=== PATIENT | female | born 1940 | race Caucasian/White ===

== ENCOUNTER 2017-10-11 10:00 | Outpatient (RCR) | payer MEDICARE, BC, SELFPAY ==
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
--- NOTE | 2017-10-11 10:00 | DT_ITS ---
This patient was seen during an EMR downtime October 10, 2017 - October 17, 2017. This patient may have a combination of paper and electronic documentation or all paper documentation. All documentation is viewable within the e-chart portion of [employer] for each patient visit.
--- NOTE | 2017-10-18 15:05 | HP.PTDCSUM ---
HP - PT D/C Summary It has been my pleasure to treat XANDER WHALEY under orders from Jorge Pryor, for the diagnosis of R knee pain. for a total of 3 visit(s). Discharge Date: 10/18/17 Please see the following information for a summary of their discharge status. - Subjective Subjective: Not seeing any improvements to R Lower leg numbnesss. R lower leg pain 9/10 most of the time without reason. Keeping her up at night at times. LB and LE strengthening not changing anything. FIS and PT not helping. Symptoms worse in standing. - Pain R lat foot Pain Intensity (Out of 10): 9 - Overall Improvement % Improvement: 0 - Objective Objective/Function: Ext of L/S causing R LE symptoms and tingly and numbness. NE with repeated ext or flexion, ext may make slightly worse overall. R antalgic gait and needs to sit after standing 3 minutes. Not progressing toward goals. - Goals Goal 1:: abolish R lower leg numby achy pain and needles Goal Progress: Not Progressing Goal 2:: I approp ex to minimize future problems with leg and gait. Goal Progress: Not Progressing Goal 3:: patient feel 75% improved in leg pain and mobility and able to stand to do daily chores for 45 minutes. Goal Progress: Not Progressing - Plan Plan: orhtotics? Ensure good tolerance to current ex. Progress to supermans, prone opp UE/LE, clamshells, S/L hip abd, S/L bicycle for HEP. - D/C Information Discharge Comments: Patient not improving and is to call doctor for next step. If there are questions or concerns regarding this patient's physical therapy, please feel free to call me at [phone]. Thank you for the referral of this patient. Sincerely, Rogelio Busch, DPT, OC
== END 2017-10-11 19:00 | disposition home or self-care (01) ==
LOC: PT 10:00
PROVIDERS: Family Provider Student in an Organized Health Care Education/Training Program; PCP Student in an Organized Health Care Education/Training Program; Visit Provider Student in an Organized Health Care Education/Training Program
DX: M25.561 Pain in right knee (principal); G89.29 Other chronic pain; M17.11 Unilateral primary osteoarthritis, right knee
CPT/HCPCS: 97110; 97162; 97530; G8979; G8980

== ENCOUNTER 2020-10-01 15:30 | Outpatient (RCR) | payer MEDICARE, BC, SELFPAY ==
--- NOTE | 2020-09-02 13:46 | HP.PTEVAL_ITS ---
Patient's Visit Information XANDER WHALEY is a 79 year old F referred to Physical Therapy by RUTH BRADSHAW with a diagnosis of POST-TRAUMATIC ANKLE ANKLE SUBTALAR ARTHRITIS,,GAIT INSABLITY. Date of Evaluation: 09/02/20 Physical Therapist: Aki James, PT, Cert MDT, OCS - Visit Plan Frequency: 2x /Week Duration: 4 Weeks Plan: BRACE ON ALL TIMES WITH EX'S,ADVISED PATIENT TO BRING IN SHOE. PT INTERVENTIONS AROM/STRENGTH ANKLE HIP/KNEE,FLEXABILITY,GAIT AND BALANCE TRAINING ,NUSTEP - Subjective This 79 y/o female presents to physical therapy with ankle pain. Patient has had ankle pain for 3 years. Patient ankle pain worse over time . Patient had MRI and DR recommended PT . Patient DR placed patient in ankle brace and wants it own while in PT.Patient pain anterior talojoint . Symptoms worse with walking and standing. Denies parathesia/tingling. Pateint sleeps good. Patient has pain with steps. Symptoms affects housework task and ADLS. MEDS: tramadol. SOCIAL: . VOCATION: retired - Pain Right Ankle Pain Intensity (Out of 10): 6 Pain Intensity Range: 10 - Objective POSTURE: frontal plane mechanics calcaneal valgus. NEURO : intact ,denies parathesia/tingling. GAIT: antalgic gait decrease stance time lateral sway. PRIORIOCEPTION: poor RLE. FLEXABLITY: G-S MILD TIGHT. AROM: dorsiflexion 0 degrees,planterflexion 50 degrees,eversion 5 degres,[id number] degrees. MMT: dorsiflexion 4-/5,posterior tibials,perneous 4-/5 ,G-S 3+/5. quads/hams 4/5,hip flexion 4-/5,hip abd 3+/5. PALAPTION: unremarkable. EDEMA: absent - Balance Scores CATSIB Score (Max score 120 seconds): 80 - Goals Goal 1:: I with HEP Goal Time Frame: 4-6 Weeks Goal 2:: Decrease pain ankle by 50% or > to improve gait. Goal Time Frame: 4-6 Weeks Goal 3:: Patient to improve gait pattern community distance with less antalgic gait Goal Time Frame: 4-6 Weeks Goal 4:: Patient to improve CATSIB by points or> to improve gait/balance Goal Time Frame: 4-6 Weeks Goal 5:: Patient to improve AROM ankle by 5 degrees or> to improve function/gait. Goal Time Frame: 4-6 Weeks Goal 6:: Patient to improve LFES by 5 points or> to improve gait. Goal Time Frame: 4-6 Weeks - Rehabilitation Potential Physical Therapy Diagnosis: This patient has ankle OA subtalar joint with pain ,decrease ROM,strength ankle ,poor proprioception , balance and pain thus benif it from skilled PT Rehabilitation Potential: Good - Anticipated Interventions Patient/Client Instruction: Educate patient on: Condition, Plan of Care For the Purpose of:: To decrease pain, To increase ROM, To improve muscle performance and motor function, To improve ability to perform ADL's, To increase tolerance to activity/condition/position, To improve performance and independence with ADL's, To improve ability of physical actions for home/community/work/leisure, To improve health of tissue, To decrease soft tissue restriction, To increase flexibility/ROM, To improve balance, To improve safety with gait, To improve ability to perform tasks related to life management Therapeutic Exercise to Include: Strength training, Endurance training, Balance training, Postural training, Flexibilty training, Gait and locomotor training, Active ROM For the Purpose of:: To decrease pain, To increase ROM, To improve muscle performance and motor function, To increase tolerance to activity/condition/position, To improve performance and independence with ADL's, To improve ability of physical actions for home/community/work/leisure, To improve health of tissue, To decrease soft tissue restriction, To increase flexibility/ROM, To improve balance, To reduce risk of recurrence Thank you for the opportunity to evaluate your patient. For Medicare and Medicare HMO plans, please review the plan of care and approve it. It will need to be FAXED BACK to us at [phone] for Medicare purposes. For Medicare only, by signing this I certify the plan of care. Please let me know if there are questions or concerns regarding this plan of care. Physician Signature: Date:
--- NOTE | 2020-10-01 16:09 | HP.PTDCSUM ---
It has been my pleasure to treat XANDER WHALEY referred by RUTH BRADSHAW, with the diagnosis of POST-TRAUMATIC ANKLE ANKLE SUBTALAR ARTHRITIS,,GAIT INSABLITY for a total of 9 visit(s). Discharge Date: 10/01/20 Please see the following information for a summary of their discharge status. Subjective: Doing better overall ..stronger Right Ankle Pain Intensity (Out of 10): 6 % Improvement: 60 Objective/Function: GAIT: lateral sway pattern. ANKLE : DORSIFLEXION 4/5,PLANTAR FLEXION 3+/5,PERNEOUS/POSTERIOR TIBILAS 4-/5. AROM: DF 5 degrees, eversion 5 degrees, inversion 30 degrees,planterflexion 50 degrees Goal 1:: I with HEP Goal Progress: Goal Met Goal 2:: Decrease pain ankle by 50% or > to improve gait. Goal Progress: Goal Met Goal 3:: Patient to improve gait pattern community distance with less antalgic gait Goal Progress: Progressing Goal 4:: Patient to improve CATSIB by points or> to improve gait/balance Goal Progress: Progressing Goal 5:: Patient to improve AROM ankle by 5 degrees or> to improve function/gait. Goal 6:: Patient to improve LFES by 5 points or> to improve gait. Goal Progress: Goal Met Plan: D/C TO HEP Discharge Comments: hep If there are questions or concerns regarding this patient's physical therapy, please feel free to call me at [phone]. Thank you for the referral of this patient. Sincerely, Aki James, PT, Cert MDT, OCS
== END 2020-10-01 19:00 | disposition home or self-care (01) ==
LOC: PT 15:30
PROVIDERS: PCP Student in an Organized Health Care Education/Training Program
DX: R26.89 Other abnormalities of gait and mobility (principal); M19.179 Post-traumatic osteoarthritis, unspecified ankle and foot
CPT/HCPCS: 97110; 97162

== ENCOUNTER 2020-11-30 19:13 | Emergency (ER) | payer MEDICARE, BC, SELFPAY ==
[2020-11-30] VITALS (8 sets, daily range): BP systolic 100–159; BP diastolic 53–82; PULSE 60–78; RESP 12–100; TEMP 36.5; O2SAT 97–100; BMI 28.8
--- NOTE | 2020-11-30 19:20 | RAD_ITS ---
STUDY: X-RAY - RIGHT ELBOW REASON FOR EXAM: Female, 79 years old. FALL TECHNIQUE: 3 view(s) of the elbow. COMPARISON: None. FINDINGS: Posterior dislocation of the ulna and radius in relation to the humerus. Small osseous densities are seen adjacent to the coronoid process of the ulna.. Diffuse soft tissue swelling. RAD/Elbow min 3 Views IMPRESSION: Elbow dislocation. Electronically Signed: Elbert Cordova MD ([place]) at 19:36 EDT , Service support ,
--- NOTE | 2020-11-30 20:21 | EX.ED.UPPERE ---
HPI History of Present Illness Chief Complaint: Upper Extremity Injury Informant: patient and family Narrative Narrative: Patient had a mechanical trip on a door stop at about 1145 this morning. She was seen in [facility]. They did x-rays of her right elbow. They found it was dislocated. They evidently tried to reduce it but it would not work. They were going to send her to another facility. She chose to come here. She states there is no other injury than the elbow. She never hit her head. She is not on anticoagulation. Motion hurts more rest makes it better. [facility] Medical History (Updated 11/30/20 @ 23:[address] Brandan Esteban MD) High cholesterol HTN (hypertension) Hypothyroid Home Medications celecoxib [Celebrex] 200 mg PO DAILY 10/03/14 [History Last Taken 10/03/14] fexofenadine-pseudoephedrine [Paloma-D 24 Hour] 1 tab.sr PO DAILY 10/03/14 [History Last Taken 10/03/14 07:00] hydrochlorothiazide 25 mg PO DAILY 10/03/14 [History Last Taken 10/03/14] levothyroxine 100 mcg PO DAILY 10/03/14 [History Last Taken 10/03/14] omega-3 fatty acids-fish oil 1 ea PO BID 10/03/14 [History Last Taken 10/03/14 07:00] pravastatin 40 mg PO DAILY 10/03/14 [History Last Taken 10/02/14 17:00] oxycodone-acetaminophen [Percocet] 1 tab PO Q6H PRN 3 Days #12 tab 11/30/20 [Rx Last Taken Unknown] Allergy/AdvReac Type Severity Reaction Status Date / Time No Known Allergies Allergy Verified 11/30/20 19:17 Social History Smoking Status: Former smoker ROS ROS ED Constitutional Constitutional ED: Denies chills, subjective or sweats Eyes Eyes: Denies change in vision or diplopia ENT ENT ED: Denies rhinorrhea or sore throat Cardiovascular Cardiovascular: Denies chest pain Respiratory/Chest Respiratory/Chest: Denies cough or dyspnea Gastrointestinal Gastrointestinal: Denies abdominal pain, nausea or vomiting Genitourinary Genitourinary ED: Denies hematuria Musculoskeletal Musculoskeletal: Reports other Details: See history of present illness. ; Denies back pain or neck pain Integumentary Denies Abrasions or rash Neurologic Neurologic: Denies headache(s) Hematologic/Lymphatic Hematologic/Lymphatic: Denies easy bleeding or easy bruising EXAM Physical Exam Const Vital Signs: 11/30/20 19:14 Temperature 97.7 F L Temperature Source Temporal Pulse Rate 73 Respiratory Rate 18 Blood Pressure 120/53 L Blood Pressure Mean 75 Pulse Ox 98 Oxygen Delivery Method Room Air Positive well nourished and well developed General Appearance ED: well developed and NAD; Negative for cyanotic or diaphoretic HEENT normocephalic and atraumatic Eyes PERRL Neck full ROM and supple Chest Wall inspection of chest normal Resp normal respiratory effort and clear to auscultation bilaterally Auscultation: Negative for wheezes Cardio regular rate, regular rhythm and no murmurs GI non-tender Palpation: soft Back/Spine no CVA tenderness Thoracic Spine / Upper Back: Negative for thoracic spinal tenderness Lumbar Spine / Lower Back: Negative for lumbar spinal tenderness Extremity Extremity Narrative: There appears to be swelling with some suspected posterior deformity/dislocation. She is neurovascularly intact distally. No tenderness of the shoulder or upper arm forearm wrist or hand. Neuro oriented x3 Sensorium / Orientation: alert Psych mental status grossly normal Skin Rashes: no rashes MDM MDM MDM Narrative Medical decision making narrative: I looked at the patient's prior x-rays and ours today. She has posterior elbow dislocation on the right. She is neurologically intact. We discussed risk benefits and options. We proceeded with procedural sedation. Patient's last meal was about 6-1/2 hours prior. No history of problems with anesthesia. She had a Mallampati of 1?2. Lungs were clear. No chronic high risk disease. Patient was kept on 100% / 15 L nonrebreather oxygen. All questions were answered. She received 40 and then 20 mg of propofol IV with good sedation. I was able to reduce the elbow. It was highly unstable and was very easy to come out. I then got assistance to hold it in place as we splinted it with a posterior long-arm splint. This was difficult because of the need to hold this in place. Postreduction films in splint do show good position. Patient overall tolerated this very well and did not actually recall the event. She woke up and was awake alert and appropriate with no symptoms. She will be referred to orthopedics. I will give her some meds for pain. We discussed that if she gets numbness tingling weakness or tightness of the splint she should return. I did recheck her. She has good motion of the fingers and capillary refill. Radiography Diagnostic Testing: Radiology Impression Elbow X-Ray 11/30/20 19:20 IMPRESSION: Elbow dislocation. Electronically Signed: Elbert Cordova MD ([place]) at 19:36 EDT , Service support , Procedures Other Procedures Procedure(s): See procedure note under medical decision-making. Discharge Plan Triage Chief Complaint: Upper Extremity Injury ED Provider: Brandan Esteban Dx/Rx/DC Orders Clinical Impression: Dislocation of right elbow Prescriptions: New oxycodone-acetaminophen [Percocet] 5-325 mg tablet 1 tab PO Q6H PRN (Reason: pain) 3 Days Qty: 12 RF: 0 No Action celecoxib [Celebrex] 200 MG capsule 200 mg PO DAILY RF: 0 pravastatin 40 MG tablet 40 mg PO DAILY RF: 0 levothyroxine 100 MCG tablet 100 mcg PO DAILY RF: 0 hydrochlorothiazide 25 MG tablet 25 mg PO DAILY RF: 0 fexofenadine-pseudoephedrine [Paloma-D 24 Hour] 1 TAB.SR tablet extended release 24 hr 1 tab.sr PO DAILY RF: 0 omega-3 fatty acids-fish oil 1 EACH capsule 1 ea PO BID RF: 0 Primary Care Provider: Jorge Pryor Referrals: Jorge Pryor DO [Primary Care Provider] - Gurpreet Spence DO [STAFF PHYSICIAN] - As soon as possible Disposition Disposition: Home, Self Care
[2020-11-30] MEDS: fentaNYL 100 MCG/2 ML Ampul 25 MCG IV (21:33)
[2020-11-30] MEDS: Propofol 200 MG/20 ML Vial IV BOLUS (22:42)
--- NOTE | 2020-11-30 23:00 | RAD_ITS ---
EXAM: XR RIGHT ELBOW COMPLETE, 3 OR MORE VIEWS : 1941 CLINICAL INDICATION: post reduction TECHNIQUE: Frontal, lateral and oblique views of the right elbow. This report was created using [employer] report generation technology. COMPARISON: 11/30/2020 at 1931 hrs. FINDINGS: BONES/JOINTS: Fiberglass splint obscures fine bony detail. There has been a closed reduction of the elbow joint. No fractures are identified. There is no displacement of the anterior or posterior fat pads. No destructive or sclerotic lesions. SOFT TISSUES: Unremarkable. No soft tissue swelling or gas. No radiopaque foreign body. OTHER FINDINGS: Alignment is anatomic. RAD/Elbow 2 Views IMPRESSION: Closed reduction of a right elbow dislocation. Alignment is anatomic. at 2353 Reported and signed by: Dylan Nam MD Electronically Signed: Dylan Nam MD at 23:51 EDT Tel , Service support ,
== END 2020-11-30 23:41 | disposition home or self-care (01) ==
PROVIDERS: Emergency Provider Emergency Medicine; PCP Student in an Organized Health Care Education/Training Program
DX: S53.124A Posterior dislocation of right ulnohumeral joint, initial encounter (principal); E78.00 Pure hypercholesterolemia, unspecified; I10 Essential (primary) hypertension; E03.9 Hypothyroidism, unspecified; Z79.899 Other long term (current) drug therapy; Z87.891 Personal history of nicotine dependence; W01.0XXA Fall on same level from slipping, tripping and stumbling without subsequent striking against object, initial encounter; Y93.01 Activity, walking, marching and hiking; Y92.009 Unspecified place in unspecified non-institutional (private) residence as the place of occurrence of the external cause; Y99.8 Other external cause status
CPT/HCPCS: 24600; 73070; 73080; 96374; 96375; 99152; 99283; J7030; A4216

== ENCOUNTER 2021-02-12 14:31 | Inpatient (IN) | payer MEDICARE, BC, SELFPAY ==
[2021-02-12 14:32] VITALS: BP 127/98; PULSE 79; RESP 15; TEMP 36.4; O2SAT 98; BMI 34.7
--- NOTE | 2021-02-12 14:42 | RAD_ITS ---
STUDY: X-RAY - LEFT FEMUR REASON FOR STUDY: Female, 80 years old. pain TECHNIQUE: 4 view(s) of the femur. COMPARISON: None. FINDINGS: Acute oblique fracture through the full width of the shaft and proximal one third aspect of the femurs present with medial and posterior displacement of the distal fracture fragment by 3 cm. The hip joint is unremarkable. There is also mild lateral subluxation of the tibia and fibula in relation to the distal femur likely due to joint space narrowing and ligamentous laxity. RAD/Femur Min 2 Views IMPRESSION: Acute displaced fracture of the proximal one third femoral shaft Electronically Signed: Sebastian Heart MD at 16:25 EDT , Service support ,
--- NOTE | 2021-02-12 14:42 | RAD_ITS ---
STUDY: X-RAY - PELVIS REASON FOR EXAM: Female, 80 years old. pain TECHNIQUE: One view of the pelvis was obtained. COMPARISON: None. FINDINGS: No acute fracture or dislocation. Moderate degenerative changes of the visualized lumbar spine. Joint spaces are well-maintained. Normal alignment. Soft tissues are unremarkable. No radiopaque foreign body or soft tissue gas. RAD/Pelvis 1 or 2 Views IMPRESSION: 1. No acute findings. 2. Degenerative changes of the lumbar spine. Electronically Signed: Desire Lagunas MD at 16:19 EDT Tel , Service support ,
--- NOTE | 2021-02-12 14:44 | EDS_ITS ---
HPI HPI - Fall History of Present Illness Chief Complaint: Fall Narrative Narrative: Patient is a 80-year-old female who states she has balance issues and walks with a cane. She states she was walking into a department store about 30 minutes prior to arrival when her cane hit the security intelligence analyst stand and this caused her to lose her balance and she fell landing on her left side. She denies striking her head or any loss of consciousness or blood thinner use. Her daughter was present and states that she saw the trauma and confirms that there was no LOC. The patient has had severe pain in the left mid leg and states she cannot ambulate secondary to this and therefore EMS was called to bring her in for evaluation [facility] Medical History High cholesterol HTN (hypertension) Hypothyroid Home Medications celecoxib [Celebrex] 200 mg PO DAILY 10/03/14 [History Last Taken 10/03/14] fexofenadine-pseudoephedrine [Paloma-D 24 Hour] 1 tab.sr PO DAILY 10/03/14 [History Last Taken 10/03/14 07:00] hydrochlorothiazide 25 mg PO DAILY 10/03/14 [History Last Taken 10/03/14] levothyroxine 100 mcg PO DAILY 10/03/14 [History Last Taken 10/03/14] omega-3 fatty acids-fish oil 1 ea PO BID 10/03/14 [History Last Taken 10/03/14 07:00] pravastatin 40 mg PO DAILY 10/03/14 [History Last Taken 10/02/14 17:00] oxycodone-acetaminophen [Percocet] 1 tab PO Q6H PRN 3 Days #12 tab 11/30/20 [Rx Last Taken Unknown] Allergy/AdvReac Type Severity Reaction Status Date / Time No Known Allergies Allergy Verified 02/12/21 14:36 Social History Smoking Status: Former smoker ROS ROS ED Constitutional Constitutional ED: Denies chills or fever(s) Eyes Eyes: Denies change in vision ENT ENT ED: Denies sore throat Cardiovascular Cardiovascular: Denies chest pain Respiratory/Chest Respiratory/Chest: Denies cough or dyspnea Gastrointestinal Gastrointestinal: Denies abdominal pain, diarrhea, nausea or vomiting Genitourinary Genitourinary ED: Denies dysuria Musculoskeletal Musculoskeletal: Reports other Details: Positive left hip/leg pain ; Denies myalgias Integumentary Denies Abrasions or rash Neurologic Neurologic: Denies headache(s) or paresthesias Hematologic/Lymphatic Hematologic/Lymphatic: Denies easy bleeding or easy bruising EXAM Physical Exam Const Vital Signs: 02/12/21 14:32 02/12/21 14:36 Temperature 97.6 F L Temperature Source Axillary Pulse Rate 79 Respiratory Rate 15 Respiratory Effort Normal Respiratory Depth Normal Respiratory Pattern Normal Blood Pressure 127/98 H Blood Pressure Mean 107 Pulse Ox 98 Oxygen Delivery Method Room Air Positive well nourished and well developed General Appearance ED: well developed HEENT Reports normocephalic and moist mucous membranes HEENT Narrative: No signs of depressed or basilar skull fracture atraumatic Eyes PERRL and EOMs intact bilaterally Neck supple Chest Wall palpation of chest normal Resp normal respiratory effort and clear to auscultation bilaterally Cardio regular rate and regular rhythm GI non-tender and non-distended Auscultation: normoactive bowel sounds Palpation: soft Back/Spine Back/Spine Narrative: No bony deformity or step-off of the thoracic or lumbar spine no midline pain on palpation Extremity Extremity Narrative: Patient's pelvis is stable but her left leg is externally rotated and shortened compared to the right. There is pain with palpation mainly along the mid aspect of the left femur with soft tissue swelling but no obvious bony deformity palpated. Active and passive range of motion is decreased secondary to pain. Remainder of the exam is normal Neuro oriented x3 and CN's II-XII intact bilaterally Sensorium / Orientation: alert Psych mental status grossly normal Skin no rashes or lesions noted Skin Narrative: Patient has soft tissue swelling to the left femur as documented above without ecchymosis abrasions or laceration Rashes: no rashes MDM MDM MDM Narrative Medical decision making narrative: Patient reported a mechanical fall and therefore there is no need for cardiac or syncope work-up. She had no report or signs of head injury and does not take blood thinner so I felt no need for head CT either. There was concern for a femoral neck versus femur fracture so x-rays were ordered. This confirmed a proximal femur fracture. However the area is closed and she is neurovascularly intact. This type of fracture will require surgical fixation however so basic labs and EKG were added as well as Covid test. Labs revealed no clinically significant findings. I did discuss the case with orthopedics on-call and they plan to take her for surgical fixation tomorrow if she is medically cleared. However based on her advanced age she will be admitted to the medical service Lab Data Labs: Laboratory Results - last 24 hr 02/12/21 02/12/21 16:20 16:20 WBC 7.3 RBC 4.06 L Hgb 12.4 Hct 39.7 MCV 97.8 MCH 30.5 MCHC 31.2 L RDW Std Deviation 47.2 H RDW Coeff of Lexy 13.2 Plt Count 203 MPV 11.4 Immature Gran % (Auto) 0.400 Neut % (Auto) 72.3 H Lymph % (Auto) 17.0 L Emmons % (Auto) 8.0 Eos % (Auto) 1.9 Baso % (Auto) 0.4 Absolute Neuts (auto) 5.3 Absolute Lymphs (auto) 1.25 Nucleated RBC % 0 Sodium 143 Potassium 3.7 Chloride 107 Carbon Dioxide 30.0 Anion Gap 6 BUN 33 H Creatinine 1.63 H Estim Creat Clear Calc 23.15 Est GFR (MDRD) Af Amer 39 L Est GFR (MDRD) Non-Af 32 L BUN/Creatinine Ratio 20.2 H Glucose 145 H Calcium 9.0 Total Bilirubin 0.40 AST 29 ALT 26 Alkaline Phosphatase 32 L Total Protein 6.3 L Albumin 3.3 Globulin 3.0 Albumin/Globulin Ratio 1.1 Radiography Diagnostic Testing: Clinical Impression(s) from Imaging Studies Femur X-Ray 02/12/21 14:42 IMPRESSION: Acute displaced fracture of the proximal one third femoral shaft Electronically Signed: Sebastian Heart MD at 16:25 EDT , Service support , Pelvis X-Ray 02/12/21 14:42 IMPRESSION: 1. No acute findings. 2. Degenerative changes of the lumbar spine. Electronically Signed: Desire Lagunas MD at 16:19 EDT Tel , Service support , Discharge Plan Triage Chief Complaint: Fall ED Provider: Maninder Yepez Dx/Rx/DC Orders Clinical Impression: Closed femur fracture Prescriptions: No Action celecoxib [Celebrex] 200 MG capsule 200 mg PO DAILY RF: 0 pravastatin 40 MG tablet 40 mg PO DAILY RF: 0 levothyroxine 100 MCG tablet 100 mcg PO DAILY RF: 0 hydrochlorothiazide 25 MG tablet 25 mg PO DAILY RF: 0 fexofenadine-pseudoephedrine [Paloma-D 24 Hour] 1 TAB.SR tablet extended release 24 hr 1 tab.sr PO DAILY RF: 0 omega-3 fatty acids-fish oil 1 EACH capsule 1 ea PO BID RF: 0 oxycodone-acetaminophen [Percocet] 5-325 mg tablet 1 tab PO Q6H PRN (Reason: pain) 3 Days Qty: 12 RF: 0 Primary Care Provider: Jorge Pryor Referrals: Jorge Pryor DO [Primary Care Provider] - Disposition Disposition: Acute Care Hospital [facility]
[2021-02-12] MEDS: Morphine 4 MG/ML Syringe IV ×2 (15:09→17:11)
[2021-02-12] MEDS: Ondansetron 4 MG/2 ML Vial IM (15:09)
--- NOTE | 2021-02-12 15:45 | RAD_ITS ---
STUDY: X-RAY CHEST REASON FOR EXAM: Female, 80 years old. pt arrives to ed after falling over her cane. no loc. pain in left leg. FEMUR FX TECHNIQUE: Single AP portable view of the chest. COMPARISON: Left femur x-ray dated February 22, 2021 FINDINGS: The lungs are clear and expanded. There is no demonstrated pleural abnormality. Normal size heart. Normal mediastinum and dylan. A small calcified node is seen in the left hilar region. Normal visualized pulmonary arteries. There is atherosclerotic calcification of the aortic arch with tortuosity. There are diffuse degenerative changes of the visualized thoracic spine. Normal visualized ribs, clavicles, and shoulders. There is no demonstrated abnormality of the visualized soft tissue structures of the upper abdomen. RAD/Chest 1 View IMPRESSION: Degenerative changes, as described above. No demonstrated acute cardiopulmonary process. Electronically Signed: Sebastian Heart MD at 16:58 EDT , Service support ,
--- NOTE | 2021-02-12 15:52 | EKG12_ITS ---
Test Reason : FALL Blood Pressure : / mmHG Vent. Rate : 064 BPM Atrial Rate : 064 BPM P-R Int : 212 ms QRS Dur : 086 ms QT Int : 412 ms P-R-T Axes : 031 004 012 degrees QTc Int : 425 ms Sinus rhythm with 1st degree A-V block Otherwise normal ECG Confirmed by ALEXI OCAMPO, GLADYS ([id number]), supervising editor trailer MUSHTAQ RICE ([id number]) on 02/16/2021 12:17:18 PM Referred By: MAURILIO Confirmed By:VIVI TRUONG MD
[2021-02-12 16:38] LABS: Bacteria 0 SEEN /hpf (None Seen); Mucous, Urine 0 SEEN /hpf (<or=2+); Red Blood Cells-Urine 0 SEEN /hpf (0-5); Squamous Epithelial Cells - UA 0 SEEN /hpf (5-10); White Blood Cells 0 SEEN /hpf (0-5)
[2021-02-12 16:41] LABS: Absolute Lymphocyte Count 1.25 X10^3/uL (0.83-4.51); Absolute Neutrophil Count 5.3 X10^3/uL (2.0-7.7); Basophil# 0.03 X10^3/uL; Basophil% 0.4 % (0-1); Eosinophil# 0.14 X10^3/uL; Eosinophils% 1.9 % (0-5); Hematocrit 39.7 % (37-47); Hemoglobin 12.4 g/dL (12.0-15.0); Lymphocyte # 1.25 X10^3/ul (0.83-4.51); Mean Corp Hgb Conc 31.2 g/dL (32-36); Mean Corpuscular Hgb 30.5 pg (27.0-32.0); Mean Corpuscular Volume 97.8 fL (81-99); Mean Platelet Vol. 11.4 fl (6.2-12.0); Monocyte# 0.59 X10^3/uL; NRBC Flagged by Analyzer 0 % (0-5); Neutrophil % 72.3 % (47-70); Platelet Count 203 K/mm3 (150-450); RBC Distribution Width CV 13.2 % (11.6-14.6); RBC Distribution Width SD 47.2 fl (35.1-43.9); Red Blood Count 4.06 M/mm3 (4.2-5.4); White Blood Count 7.3 K/mm3 (4.4-11.0)
[2021-02-12 16:49] LABS: Color, Urine Yellow (Yellow); Glucose, Dipstick Normal (Normal); Ketone-Dipstick Negative (Negative); Leukocyte Esterase-Dipstick 25 /ul (Negative); Nitrite-Dipstick Negative (Negative); Occult Blood-Urine Negative /ul (Negative); Protein-Dipstick Negative (Negative); Urine Bilirubin Dipstick Negative (Negative); Urine Clarity Clear (Clear); Urine Urobilinogen Normal (Normal)
[2021-02-12 16:50] LABS: ALB/GLOB Ratio 1.1 RATIO (0.9-2.4); AST(SGOT) 29 U/L (15-37); Alanine Aminotransfer ALT/SGPT 26 U/L (13-56); Albumin, Serum 3.3 g/dL (3.2-5.0); Alkaline Phosphatase 32 U/L (45-117); Anion Gap 6 (5-15); BUN 33 mg/dL (7-18); BUN/Creat Ratio 20.2 RATIO (10-20); Chloride 107 mmol/L (98-107); Creatinine, Serum 1.63 mg/dL (0.55-1.02); EST Glomerular Filtration Rate 32 mL/min (>60); Est Glom Filt Rate - Afr Amer 39 mL/min (>60); Estimated Creatinine Clearance 23.15 ml/min; Glucose 145 mg/dL (74-106); Potassium 3.7 mmol/L (3.5-5.1); Protein, Total 6.3 g/dL (6.4-8.2); Sodium Level 143 mmol/L (136-145)
[2021-02-12 17:07] LABS: International Normalized Ratio 1.2; Partial Thromboplast Time 22.2 Seconds (24.1-36.2); Prothrombin Time (Protime)PT. 14.3 SECONDS (11.7-14.9)
[2021-02-12 17:12] VITALS: BP 129/64; PULSE 65; RESP 16; TEMP 36.4; O2SAT 94
--- NOTE | 2021-02-12 17:12 | PCM.HP.STD ---
Documented by User: Syeda Townsend NP, REGIONAL EDUCATION COORDINATOR-C 02/12/21 17:33 HPI - General HPI Narrative XANDER WHALEY, is a 80 F who presents to the emergency room due to fall with left leg pain. She states she was walking to get a cart at a department store when she tripped over her cane and fell onto her left side. She denies hitting her head. Denies loss of consciousness. Reports left lower extremity pain and unable to ambulate. Denies other pain. Denies dizziness, lightheadedness. Denies chest pain, shortness of breath. She states she has fallen in the past, most recently in November. She states it is due to clumsiness. She has a past medical history of hypertension, hyperlipidemia, hypothyroidism, osteoarthritis. [facility] Medical History (Updated 02/12/21 @ 17:19 by Syeda Townsend REGIONAL EDUCATION COORDINATOR, REGIONAL EDUCATION COORDINATOR-C) High cholesterol HTN (hypertension) Hypothyroid Home Medications celecoxib [Celebrex] 200 mg PO DAILY 10/03/14 [History Last Taken 02/12/21] hydrochlorothiazide 25 mg PO DAILY 10/03/14 [History Last Taken 02/12/21] levothyroxine [Synthroid] 100 mcg PO DAILY 10/03/14 [History Last Taken 02/12/21] omega-3 fatty acids-fish oil 1 ea PO QHS 10/03/14 [History Last Taken 02/11/21] pravastatin 40 mg PO QHS 10/03/14 [History Last Taken 02/11/21] cetirizine [Zyrtec] 10 mg PO DAILY 02/12/21 [History Last Taken 02/12/21] escitalopram oxalate 5 mg PO DAILY 02/12/21 [History Last Taken 02/12/21] fenofibrate 160 mg PO DAILY 02/12/21 [History Last Taken 02/12/21] metoprolol tartrate 50 mg PO BID 02/12/21 [History Last Taken 02/12/21] lgsahwdj-nxp-hpeq-FA-lutein [Centrum Silver Women] 1 tab PO DAILY 02/12/21 [History Last Taken 02/12/21] prednisone 5 mg PO DAILY 02/12/21 [History Last Taken 02/12/21] tramadol 50 mg PO Q6H PRN 02/12/21 [History Last Taken 02/12/21] Allergy/AdvReac Type Severity Reaction Status Date / Time No Known Allergies Allergy Verified 02/12/21 14:36 Family History (Updated 02/12/21 @ 17:18 by Syeda Townsend NP, REGIONAL EDUCATION COORDINATOR-C) Father Colon cancer Mother CVA (cerebral vascular accident) CAD (coronary artery disease) Surgical History (Updated 02/12/21 @ 17:19 by Syeda Townsend NP, REGIONAL EDUCATION COORDINATOR-C) History of MRSA infection Social History (Updated 02/12/21 @ 17:19 by Syeda Townsend NP, REGIONAL EDUCATION COORDINATOR-C) household members: none Smoking Status: Former smoker alcohol intake: never substance use type: does not use ROS Constitutional Constitutional: Denies change in weight, chills, fatigue, fever(s) or weakness Cardiovascular Cardiovascular: Denies chest pain, edema, lightheadedness, palpitations or syncope Respiratory/Chest Respiratory/Chest: Denies cough, dyspnea, productive cough, shortness of breath at rest, shortness of breath with exertion or wheezing Gastrointestinal Gastrointestinal: Denies abdominal pain, constipation, diarrhea, nausea or vomiting Genitourinary Genitourinary: Denies burning urination, difficulty urinating, dysuria, hematuria, urinary frequency, urinary incontinence or urinary urgency Musculoskeletal Musculoskeletal: Reports other Details: Left lower extremity pain ; Denies back pain, joint pain or muscle weakness Integumentary Integumentary: Denies erythema, lesions, rash or wounds Neurologic Neurologic: Denies abnormal speech, confusion, dizziness, focal weakness, numbness, paresthesias, seizure-like activity or syncope Psychiatric Psychiatric: Denies anxiety or depression Hematologic/Lymphatic Hematologic/Lymphatic: Denies anemia, easy bleeding or easy bruising Allergic/Immunologic Allergic/Immunologic: Denies hives or asthma Vital Signs Vital Signs Vital Signs: 02/12/21 14:32 02/12/21 14:36 02/12/21 17:12 Temperature 97.6 F L 97.6 F L Temperature Source Axillary Axillary Pulse Rate 79 65 Respiratory Rate 15 16 Respiratory Effort Normal Respiratory Depth Normal Respiratory Pattern Normal Blood Pressure 127/98 H 129/64 H Blood Pressure Mean 107 85 Pulse Ox 98 94 Oxygen Delivery Method Room Air Room Air Weight Weight: 196 lb 3.382 oz Body Mass Index (BMI) 34.7 Physical Exam Const alert, oriented x3 and no apparent distress Orientation / Consciousness: awake, oriented to person, oriented to place and oriented to time HEENT normocephalic and moist oral mucous membranes Eyes PERRL, EOMs intact bilaterally and conjunctivae normal Neck no lymphadenopathy Resp normal respiratory effort and clear to auscultation bilaterally Cardio regular rate, regular rhythm and no murmurs Peripheral Pulses: pulses 2+ throughout GI normal to inspection, nondistended, normoactive bowel sounds, non-tender and non-distended Extremity normal to inspection Extremity Narrative: Left lower extremity pain Skin no rashes or lesions noted Lesions: no lesions Rashes: no rashes Trauma: no lacerations or abrasions Neuro CN's II-XII intact bilaterally, no focal motor deficits, no sensory deficits noted and deep tendon reflexes 2+ bilaterally Psych mental status grossly normal and affect normal Results Lab / Micro Data Result Diagrams: 02/12/21 16:20 02/12/21 16:20 Labs: Laboratory Results - last 24 hr 02/12/21 16:20: WBC 7.3, RBC 4.06 L, Hgb 12.4, Hct 39.7, MCV 97.8, MCH 30.5, MCHC 31.2 L, RDW Std Deviation 47.2 H, RDW Coeff of Lexy 13.2, Plt Count 203, MPV 11.4, Immature Gran % (Auto) 0.400, Neut % (Auto) 72.3 H, Lymph % (Auto) 17.0 L, Woodson % (Auto) 8.0, Eos % (Auto) 1.9, Baso % (Auto) 0.4, Absolute Neuts (auto) 5.3, Absolute Lymphs (auto) 1.25, Nucleated RBC % 0 02/12/21 16:20: PT 14.3, INR 1.2, APTT 22.2 L 02/12/21 16:20: Sodium 143, Potassium 3.7, Chloride 107, Carbon Dioxide 30.0, Anion Gap 6, BUN 33 H, Creatinine 1.63 H, Estim Creat Clear Calc 23.15, Est GFR (MDRD) Af Amer 39 L, Est GFR (MDRD) Non-Af 32 L, BUN/Creatinine Ratio 20.2 H, Glucose 145 H, Calcium 9.0, Total Bilirubin 0.40, AST 29, ALT 26, Alkaline Phosphatase 32 L, Total Protein 6.3 L, Albumin 3.3, Globulin 3.0, Albumin/Globulin Ratio 1.1 10/07/21 16:30: Urine Color Yellow, Urine Clarity Clear, Urine pH 5.0, Ur Specific [place] 1.020, Urine Protein Negative, Urine Glucose (UA) Normal, Urine Ketones Negative, Urine Occult Blood Negative, Urine Nitrite Negative, Urine Bilirubin Negative, Urine Urobilinogen Normal, Ur Leukocyte Esterase 25 H, Urine RBC 0 SEEN, Urine WBC 0 SEEN, Ur Squamous Epith Cells 0 SEEN, Urine Bacteria 0 SEEN, Urine Mucus 0 SEEN Micro: Microbiology 02/12/21 16:30 Nasal Secretion SARS-CoV-2 Antigen (Rapid) - Final Radiology Impression Femur X-Ray 02/12/21 14:42 IMPRESSION: Acute displaced fracture of the proximal one third femoral shaft Electronically Signed: Sebastian Heart MD at 16:25 EDT , Service support , Pelvis X-Ray 02/12/21 14:42 IMPRESSION: 1. No acute findings. 2. Degenerative changes of the lumbar spine. Electronically Signed: Desire Lagunas MD at 16:19 EDT Tel , Service support , Chest X-Ray 02/12/21 15:45 IMPRESSION: Degenerative changes, as described above. No demonstrated acute cardiopulmonary process. Electronically Signed: Sebastian Heart MD at 16:58 EDT , Service support , Assessment & Plan Assessment/Plan (1) History of MRSA infection: (2) Closed femur fracture: PLAN: 1. Acute traumatic displaced proximal femur fracture-plan for surgical intervention 02/13/2021 by orthopedic medicine. PT/OT. As needed pain regimen. Preoperative EKG reviewed, no ST-T changes. NSQIP surgical risk calculator completed and demonstrates a fairly average risk based on age. From a medical standpoint, patient cleared to proceed with orthopedic surgery. Case management consult for discharge planning. 2. Acute kidney injury-IV fluids, trend BMP. Hold HCTZ. 3. Elevated glucose-possibly reactive. Check hemoglobin A1c. 4. Hypertension-stable, hold HCTZ. 5. Hyperlipidemia-continue statin. 6. Hypothyroidism-continue Synthroid regimen. 7. Osteoarthritis-hold Celebrex. As needed Tylenol. 8. History of MRSA infection requiring I&D, behind right ear-patient reports approximately 10 years ago. DVT prophylaxis-Lovenox subcu CODE STATUS: Discussed in length with patient including differences between full code, DNR CCA and DNR CC. Patient elects full CODE STATUS. This patient was seen by MARCUS Dodd under the supervision of Dr. Garcia. Documented by User: Dr. Alisson Garcia MD 02/12/21 18:05 HPI - General General Date of Admission: 02/12/21 [facility] Medical History (Updated 02/12/21 @ 17:19 by Syeda Townsend NP, REGIONAL EDUCATION COORDINATOR-C) High cholesterol HTN (hypertension) Hypothyroid Home Medications celecoxib [Celebrex] 200 mg PO DAILY 10/03/14 [History Last Taken 02/12/21] hydrochlorothiazide 25 mg PO DAILY 10/03/14 [History Last Taken 02/12/21] levothyroxine [Synthroid] 100 mcg PO DAILY 10/03/14 [History Last Taken 02/12/21] omega-3 fatty acids-fish oil 1 ea PO QHS 10/03/14 [History Last Taken 02/11/21] pravastatin 40 mg PO QHS 10/03/14 [History Last Taken 02/11/21] cetirizine [Zyrtec] 10 mg PO DAILY 02/12/21 [History Last Taken 02/12/21] escitalopram oxalate 5 mg PO DAILY 02/12/21 [History Last Taken 02/12/21] fenofibrate 160 mg PO DAILY 02/12/21 [History Last Taken 02/12/21] metoprolol tartrate 50 mg PO BID 02/12/21 [History Last Taken 02/12/21] atuklyiw-tnr-apoy-FA-lutein [Centrum Silver Women] 1 tab PO DAILY 02/12/21 [History Last Taken 02/12/21] prednisone 5 mg PO DAILY 02/12/21 [History Last Taken 02/12/21] tramadol 50 mg PO Q6H PRN 02/12/21 [History Last Taken 02/12/21] Allergy/AdvReac Type Severity Reaction Status Date / Time No Known Allergies Allergy Verified 02/12/21 14:36 Family History (Updated 02/12/21 @ 17:18 by Syeda Townsend REGIONAL EDUCATION COORDINATOR, REGIONAL EDUCATION COORDINATOR-C) Father Colon cancer Mother CVA (cerebral vascular accident) CAD (coronary artery disease) Surgical History (Updated 02/12/21 @ 17:19 by Syeda Townsend NP, REGIONAL EDUCATION COORDINATOR-C) History of MRSA infection Social History (Updated 02/12/21 @ 17:19 by Syeda Townsend NP, REGIONAL EDUCATION COORDINATOR-C) household members: none Smoking Status: Former smoker alcohol intake: never substance use type: does not use Results Lab / Micro Data Result Diagrams: 02/12/21 16:20 02/12/21 16:20
[2021-02-12 18:07] VITALS: BMI 30.4
[2021-02-12 18:38] VITALS: BP 155/83; PULSE 69; RESP 16; TEMP 36.3; O2SAT 95
[2021-02-12 18:50] LABS: Hemoglobin A1c 5.9 % (3.8-5.6)
--- NOTE | 2021-02-12 21:47 | PCS.PANDOC ---
PANDEMIC DOCUMENTATION INITIATED: Date: 12/22/2020 Time: 190
[2021-02-12 21:52] VITALS: BP 133/64; PULSE 74; RESP 16; TEMP 36.8; O2SAT 95
[2021-02-12 22:14] VITALS: PULSE 74
[2021-02-12] MEDS: Metoprolol Tartrate 50 MG Tablet PO (22:14)
[2021-02-12] MEDS: 0.9% Saline Lock 10 ML Syringe IV (22:14)
[2021-02-12] MEDS: 0.9% Normal Saline 1,000 ML 100 ML IV (22:14)
[2021-02-12] MEDS: oxyCODONE 5 MG Tablet 10 MG PO (22:27)
[2021-02-12] MEDS: Acetaminophen 500 MG Tablet 1000 MG PO (22:28)
[2021-02-13] VITALS (12 sets, daily range): BP systolic 115–151; BP diastolic 48–115; PULSE 65–91; RESP 16–18; TEMP 36.2–37.2; O2SAT 90–100; BMI 30.4
--- NOTE | 2021-02-13 04:34 | EKG12_ITS ---
Test Reason : AM EKG Blood Pressure : / mmHG Vent. Rate : 058 BPM Atrial Rate : 058 BPM P-R Int : 256 ms QRS Dur : 080 ms QT Int : 426 ms P-R-T Axes : 029 004 008 degrees QTc Int : 418 ms Sinus bradycardia with 1st degree A-V block Minimal voltage criteria for LVH, may be normal variant Borderline ECG When compared with ECG of 12-FEB-2021 16:02, MANUAL COMPARISON REQUIRED, DATA IS UNCONFIRMED Confirmed by BRYANNA OCAMPO, LUISANA ([id number]), video effects editor MUSHTAQ RICE ([id number]) on 02/17/2021 10:20:47 AM Referred By: JOCELYNE Confirmed By:LUISANA GOULD MD
--- NOTE | 2021-02-13 05:55 | EKG12_ITS ---
Test Reason : AM EKG Blood Pressure : / mmHG Vent. Rate : 059 BPM Atrial Rate : 059 BPM P-R Int : 256 ms QRS Dur : 076 ms QT Int : 416 ms P-R-T Axes : 027 001 004 degrees QTc Int : 411 ms Sinus bradycardia with 1st degree A-V block Minimal voltage criteria for LVH, may be normal variant Borderline ECG When compared with ECG of 13-FEB-2021 04:34, MANUAL COMPARISON REQUIRED, DATA IS UNCONFIRMED Confirmed by BRYANNA OCAMPO, LUISANA ([id number]), editor continuity and script MUSHTAQ RICE ([id number]) on 02/17/2021 10:17:43 AM Referred By: JOCELYNE Confirmed By:LUISANA GOULD MD
[2021-02-13 06:53] LABS: Absolute Lymphocyte Count 1.77 X10^3/uL (0.83-4.51); Absolute Neutrophil Count 3.2 X10^3/uL (2.0-7.7); Basophil# 0.03 X10^3/uL; Basophil% 0.5 % (0-1); Eosinophil# 0.17 X10^3/uL; Eosinophils% 2.9 % (0-5); Hematocrit 34.4 % (37-47); Hemoglobin 11.1 g/dL (12.0-15.0); Lymphocyte # 1.77 X10^3/ul (0.83-4.51); Lymphocyte % 30.4 % (19-41); Mean Corp Hgb Conc 32.3 g/dL (32-36); Mean Corpuscular Hgb 31.4 pg (27.0-32.0); Mean Corpuscular Volume 97.5 fL (81-99); Mean Platelet Vol. 11.6 fl (6.2-12.0); Monocyte# 0.68 X10^3/uL; Monocyte% 11.7 % (0-10); NRBC Flagged by Analyzer 0 % (0-5); Neutrophil # 3.15 X10^3/uL (2.7-7.7); Platelet Count 162 K/mm3 (150-450); RBC Distribution Width CV 13.5 % (11.6-14.6); RBC Distribution Width SD 48.3 fl (35.1-43.9); Red Blood Count 3.53 M/mm3 (4.2-5.4); White Blood Count 5.8 K/mm3 (4.4-11.0)
[2021-02-13] MEDS: 0.9% Normal Saline 1,000 ML 100 ML IV (07:00)
[2021-02-13 07:26] LABS: Anion Gap 6 (5-15); BUN 29 mg/dL (7-18); BUN/Creat Ratio 23.4 RATIO (10-20); Calcium,Total 8.2 mg/dL (8.5-10.1); Chloride 108 mmol/L (98-107); Creatinine, Serum 1.24 mg/dL (0.55-1.02); EST Glomerular Filtration Rate 44 mL/min (>60); Est Glom Filt Rate - Afr Amer 54 mL/min (>60); Estimated Creatinine Clearance 30.43 ml/min; Glucose 94 mg/dL (74-106); Potassium 3.6 mmol/L (3.5-5.1); Sodium Level 144 mmol/L (136-145)
--- NOTE | 2021-02-13 08:45 | RAD_ITS ---
STUDY: X-RAY - PELVIS AND LEFT HIP REASON FOR EXAM: ORIF, gamma nail placement. TECHNIQUE: 7 intraoperative images of the pelvis and hip. COMPARISON: Radiographs 02/12/2021. FINDINGS: There is a gamma nail transfixing the proximal femoral diaphyseal fracture in anatomical alignment and position. 229.3 seconds of fluoroscopy time was used. Electronically Signed: Cruz Kenny MD at 12:10 EDT Tel , Service support , RAD/HIP, UNI W/ Pelvis 2-3 Views
[2021-02-13] MEDS: Cefazolin 2 GM in 0.9% Normal Saline 100 ML IV (08:51)
--- NOTE | 2021-02-13 10:46 | PCM.OP.BLANK ---
Problems Associated Problem List Diagnoses (1) Closed femur fracture: Operative Report Date of Procedure: 02/13/21 Preoperative diagnosis: Left displaced femoral shaft fracture Postoperative diagnosis: Same Title of operation: Left femur reduction , intramedullary nail fixation, locked Surgeon: Dr. Chidi Mccann Cobbler Upper: Chanelle Bronson PA-C Anesthesia: General Medications: Ancef 2gm EBL: 50 Indications for surgery: Patient is an 80-year-old male sustained a left femur fracture yesterday. Patient and their family explained diagnosis and treatment options. Patient evaluated by the medical services. Patient did wish to have surgery. Appropriate informed consent obtained and signed. Findings: Patient had a displaced left femur fracture. They underwent standard reduction, internal fixation using a Evelyn long gamma nail. X-rays taken throughout. public aid eligibility assistant, physician assistant professor of history, was utilized throughout the entire procedure. They were vital to the procedure from beginning to end. They help with patient transfer, patient padding and positioning, fracture reduction, maintenance of fracture reduction, internal fixation of implants, wound closure, bandage application, patient transfer. Without surgical instruments inspector, surgical time would have been significantly increased and surgical outcome could have been less optimal. Procedure: Patient was taken to the operating room. Placed under a general anesthetic and transferred to the operating table with the help of the assistant professor of history. With the help of the assistant professor of history patient was prepped and padded for surgery. Left foot was well-padded and placed in the traction boot. Right lower extremity was abducted and flexed out of harm's way. MARILUZ hose and SCDs utilized. Fluoroscopy was brought in. With the help of the assistant professor of history and manipulation of the limb, reduction was nicely obtained as verified under AP fluoroscopic images. On the lateral view the fracture remained 100% translated. Reduction was improved with anterior to posterior pressure on the fracture site. Left femur was prepped padded draped in usual orthopedic sterile fashion for the procedure. Longitudinal incision was made just proximal to the greater trochanter. Taken through skin and subcutaneous tissue. Sharp awl was placed on the tip of the greater trochanter. Position verified under AP and lateral fluoroscopic images. This was then taken down inside the bone. Slightly bent ball-tipped guide jenn was then placed from the tip of the greater trochanter into the intra-medullary canal of the femur. We triple reamed to the level of the lesser trochanter. We placed a reduction tool. With the help of the assistant professor of history ultimately we are able to get the guide jenn across the fracture site into the distal femur. Its position verified radiographically. Guide jenn was verified to be just above the patella on the AP and lateral x-rays of the knee. We measured the length of the guide jenn within the bone. Measurement was 350. We decided on a 340 nail. Long reaming was done starting with a 9 mm reamer and reaming up to 12.5 mm distally. Was then with the help of the assistant professor of history . once reaming was done we placed the short 125? angle device over the guidepin. This was easily introduced. Guide jenn removed. Outrigger device was utilized to position a guidepin from the lateral cortex of the femur across the fracture site and into the femoral head in a good position centrally, as noted on AP lateral and oblique fluoroscopic images. This was measured. Appropriate reaming done. Appropriate length lag screw was placed from the lateral cortex of the femur into the femoral head. A small amount of the screw was noted to be protruding laterally as planned. No cartilage penetration of the femoral head noted on any x-ray. Screw was placed seated down completely, confirmed. Fluoroscopy was utilized distally to verify the position of the jenn on AP and lateral images as well as confirm fracture reduction. Fracture was impacted, all traction was taken off the distal femur. Lateral image was used to verify the holes within the jenn. We placed a drill bit with the help of fluoroscopy through the slotted hole distally to allow for compression. We then measured and placed the appropriate length to cross locking screw through the slotted hole this was confirmed to be of adequate length in good position on AP and lateral images. Outrigger device removed. Final set of AP and lateral proximal and distal x-rays taken and saved. Fracture site was noted to be well reduced and compressed. Incisions were thoroughly irrigated. Closing by the assistant professor of history with deep 0 Vicryl, mid layer 0 Vicryl, inverted 2-0 Vicryl, skin rey. Puncture wounds closed with inverted 2-0 Vicryl and rey. Xeroform 4 x 4's ABD tape applied. Patient was awoken from their anesthetic, transferred back to their own bed with the help of the assistant professor of history and into recovery room in satisfactory condition. Patient will continue to be admitted to the hospital under the hospitalist service. This note was generated with Stream[employer] dictation software. It may contain incorrect words, spelling, and punctuation that were not noted in checking the note before signing. Ancef 2 g IV was given preoperatively. We will plan to use aspirin 81 mg twice a day for DVT prevention as previously discussed with the hospitalist.
--- NOTE | 2021-02-13 10:54 | CON.PCM_ITS ---
Assessment & Plan Assessment/Plan (1) Closed femur fracture: PLAN: Dr. Chidi Mccann did discuss and review at length with the patient and her family member all treatment options for her femoral shaft fracture including surgical and nonsurgical treatment options. At this time they do wish to proceed with closed reduction intramedullary nailing of femoral shaft fracture with long gamma nail with possible open reduction. Potential risk benefits and complications of the surgical procedure including but not limited to infection nerve and blood vessel damage persistent pain numbness tingling paresthesias blood clot pulmonary [place] and the requirement possible further surgery were discussed and reviewed at length. They voiced understanding. They do agree to proceed with the above-stated procedure and pascual alcala signed the appropriate surgery consent form We discussed and reviewed the current COVID-19 pandemic and vaccination we discussed the risks associated with hospital exposure. We discussed the str ategies to attempt to minimize exposure. They voiced understanding. HPI Consult Data Date of Consult: 02/13/21 HPI Narrative HPI Narrative: XANDER WHALEY, is a 80 F who presented to [facility] yesterday February 12, 2021 after a fall while walking to get a cart at a department store. She tripped over her cane fell on her left side. No head injury or loss of consciousness. The left leg was normal and pain-free prior to the injury. She was taken to [facility] emergency department via squad. She was admitted to the medical surgical unit and orthopedics was consulted. She complains of left thigh pain denies left hip or knee pain. Denies pain into the lower leg or ankle. No numbness or tingling into the feet. No fevers chills or other signs of infection. [facility] Medical History Depression High cholesterol HTN (hypertension) Hypothyroid Rheumatoid arthritis Home Medications celecoxib [Celebrex] 200 mg PO DAILY 10/03/14 [History Last Taken 02/12/21] hydrochlorothiazide 25 mg PO DAILY 10/03/14 [History Last Taken 02/12/21] levothyroxine [Synthroid] 100 mcg PO DAILY 10/03/14 [History Last Taken 02/12/21] omega-3 fatty acids-fish oil 1 ea PO QHS 10/03/14 [History Last Taken 02/11/21] pravastatin 40 mg PO QHS 10/03/14 [History Last Taken 02/11/21] cetirizine [Zyrtec] 10 mg PO DAILY 02/12/21 [History Last Taken 02/12/21] escitalopram oxalate 5 mg PO DAILY 02/12/21 [History Last Taken 02/12/21] fenofibrate 160 mg PO DAILY 02/12/21 [History Last Taken 02/12/21] metoprolol tartrate 50 mg PO BID 02/12/21 [History Last Taken 02/12/21] ezjnxqom-teb-ybcj-FA-lutein [Centrum Silver Women] 1 tab PO DAILY 02/12/21 [History Last Taken 02/12/21] prednisone 5 mg PO DAILY 02/12/21 [History Last Taken 02/12/21] tramadol 50 mg PO Q6H PRN 02/12/21 [History Last Taken 02/12/21] Allergy/AdvReac Type Severity Reaction Status Date / Time No Known Allergies Allergy Verified 02/13/21 07:22 Family History (Updated 02/12/21 @ 17:18 by Syeda Townsend CLASSIFYING MACHINE OPERATOR, CLASSIFYING MACHINE OPERATOR-C) Father Colon cancer Mother CVA (cerebral vascular accident) CAD (coronary artery disease) Surgical History History of MRSA infection Social History (Updated 02/12/21 @ 17:19 by Syeda Townsend CLASSIFYING MACHINE OPERATOR, CLASSIFYING MACHINE OPERATOR-C) household members: none Smoking Status: Never smoker alcohol intake: never substance use type: does not use ROS ROS Narrative Review of systems were discussed and reviewed at length with the patient all pertinent positives and negative are documented in the electronic medical record Physical Exam Narrative Patient was evaluated with her family member sitting bedside. She was resting comfortably in the hospital bed no acute distress at rest breathing easily without respiratory distress. There is deformity at the left thigh from femur fracture hip and knee range of motion were deferred due to femur fracture no calf pain or swelling. Negative Sharad bilaterally without signs of DVT. Sensation intact light touch pedal pulses present equal bilaterally. Neurovascularly intact All below documented laboratory results were reviewed in the electronic medical record X-rays of left femur and pelvis from [facility] February 12, 2021 were reviewed are consistent with degenerative changes of lumbar spine without significant degenerative changes about the hips bilaterally. There are degenerative changes about the left knee with osteophyte formation. There is a displaced angulated proximal third femoral shaft fracture Lab / Micro Data Result Diagrams: 02/13/21 05:45 02/13/21 05:45 Labs: Laboratory Results - last 24 hr 02/12/21 16:20: WBC 7.3, RBC 4.06 L, Hgb 12.4, Hct 39.7, MCV 97.8, MCH 30.5, MCHC 31.2 L, RDW Std Deviation 47.2 H, RDW Coeff of Lexy 13.2, Plt Count 203, MPV 11.4, Immature Gran % (Auto) 0.400, Neut % (Auto) 72.3 H, Lymph % (Auto) 17.0 L, Ross % (Auto) 8.0, Eos % (Auto) 1.9, Baso % (Auto) 0.4, Absolute Neuts (auto) 5 .3, Absolute Lymphs (auto) 1.25, Nucleated RBC % 0 02/12/21 16:20: PT 14.3, INR 1.2, APTT 22.2 L 02/12/21 16:20: Sodium 143, Potassium 3.7, Chloride 107, Carbon Dioxide 30.0, Anion Gap 6, BUN 33 H, Creatinine 1.63 H, Estim Creat Clear Calc 23.15, Est GFR (MDRD) Af Amer 39 L, Est GFR (MDRD) Non-Af 32 L, BUN/Creatinine Ratio 20.2 H, Glucose 145 H, Calcium 9.0, Total Bilirubin 0.40, AST 29, ALT 26, Alkaline Phosphatase 32 L, Total Protein 6.3 L, Albumin 3.3, Globulin 3.0, Albumin/Globulin Ratio 1.1 02/12/21 16:20: Hemoglobin A1c 5.9 H 02/12/21 16:20: Blood Type A NEGATIVE, Antibody Screen NEGATIVE 02/12/21 16:30: Urine Color Yellow, Urine Clarity Clear, Urine pH 5.0, Ur Specific [place] 1.020, Urine Protein Negative, Urine Glucose (UA) Normal, Urine Ketones Negative, Urine Occult Blood Negative, Urine Nitrite Negative, Urine Bilirubin Negative, Urine Urobilinogen Normal, Ur Leukocyte Esterase 25 H, Urine RBC 0 SEEN, Urine WBC 0 SEEN, Ur Squamous Epith Cells 0 SEEN, Urine Bacteria 0 SEEN, Urine Mucus 0 SEEN 02/13/21 05:45: WBC 5.8, RBC 3.53 L, Hgb 11.1 L, Hct 34.4 L, MCV 97.5, MCH 31.4, MCHC 32.3, RDW Std Deviation 48.3 H, RDW Coeff of Lexy 13.5, Plt Count 162, MPV 11.6, Immature Gran % (Auto) 0.500, Neut % (Auto) 54.0, Lymph % (Auto) 30.4, Ross % (Auto) 11.7 H, Eos % (Auto) 2.9, Baso % (Auto) 0.5, Absolute Neuts (auto) 3.2, Absolute Lymphs (auto) 1.77, Nucleated RBC % 0 02/13/21 05:45: Sodium 144, Potassium 3.6, Chloride 108 H, Carbon Dioxide 30.0, Anion Gap 6, BUN 29 H, Creatinine 1.24 H, Estim Creat Clear Calc 30.43, Est GFR (MDRD) Af Amer 54 L, Est GFR (MDRD) Non-Af 44 L, BUN/Creatinine Ratio 23.4 H, Glucose 94, Calcium 8.2 L Micro: Microbiology 02/12/21 16:30 Nasal Secretion SARS-CoV-2 Antigen (Rapid) - Final Radiology Impression Femur X-Ray 02/12/21 14:42 IMPRESSION: Acute displaced fracture of the proximal one third femoral shaft Electronically Signed: Sebastian Heart MD at 16:25 EDT , Service support , Pelvis X-Ray 02/12/21 14:42 IMPRESSION: 1. No acute findings. 2. Degenerative changes of the lumbar spine. Electronically Signed: Desire Lagunas MD at 16:19 EDT Tel , Service support , Chest X-Ray 02/12/21 15:45 IMPRESSION: Degenerative changes, as described above. No demonstrated acute cardiopulmonary process. Electronically Signed: Sebastian Heart MD at 16:58 EDT , Service support ,
[2021-02-13 11:21] LABS: Hematocrit 34.4 % (37-47); Mean Corpuscular Hgb 31.3 pg (27.0-32.0); Mean Platelet Vol. 11.1 fl (6.2-12.0); Platelet Count 157 K/mm3 (150-450); RBC Distribution Width CV 13.3 % (11.6-14.6); RBC Distribution Width SD 47.5 fl (35.1-43.9); Red Blood Count 3.51 M/mm3 (4.2-5.4); White Blood Count 6.1 K/mm3 (4.4-11.0)
[2021-02-13] MEDS: Lactated Ringers 1,000 ML 100 ML IV (11:56)
[2021-02-13] MEDS: oxyCODONE 5 MG Tablet 10 MG PO ×2 (13:10→16:57)
--- NOTE | 2021-02-13 13:13 | CASEMGMT ---
Addendum entered by Rupa Garvin 02/13/21 14:54: Pt's daughter Lexy is here, spoke w/her about options at discharge. She would like a referral made to the rehab unit. SW spoke w/pt and daughter together, explained the difference between rehab and senior care facility level of care. Pt agreeable to rehab, if they would take her. SW made referral, rehab can take pt Tuesday or after. SW let pt and daughter know, they are agreeable to this. SW placed green sheet on chart in anticipation of weekend discharge on Tuesday. SALEEM Ortega Addendum entered by Rupa Garvin 02/13/21 13:24: SW called [facility] to check on bed availability, they temporarily closed the swing bed unit as they are using the beds now for COVID patients. SW let pt know, will continue to follow. SALEEM Ortega Original Note: Expert Medical Writer met w/pt in room, reviewed prior level of function and anticipated discharge plan. PCP: Dr. Pryor Specialists: Dr. Gordon, post anesthesia care unit nurse Pharmacy: [facility] [place] Living arrangements/Prior level of function: Pt lives at [facility], one level with two steps in. Pt lives alone, independent with all ADLs, drives, pays her own bills, organizes her own medication. LNOK: Two daughters, Julia who lives in [facility] and Lexy who is in [facility] from [place] LW/POA: As per pt has LW/POA, not on file, daughter Julia is POA DME/HHC/SNF: Pt has had home health in the past for wound care, has a cane, comfort height commode, pull cords, grab bars, tub transfer bench. Pt would eventually like to get a bedside commode. Pt uses a cane at baseline. Plan: SW spoke w/pt about discharge plan, she is agreeable to go somewhere for rehab. SW provided lists of both inpt rehab and senior care facilities in pt's preferred geographic area, that take pt's insurance, complete with quality and resource use data. Pt may want to go to [facility] Swing Bed Unit, but wants to speak w/her daughters, who will be back this afternoon. SW will follow up w/family and pt, and make referrals accordingly. SALEEM Ortega
[2021-02-13] MEDS: Pravastatin 40 MG Tablet PO (13:16)
[2021-02-13] MEDS: Metoprolol Tartrate 50 MG Tablet PO ×2 (13:16→20:07)
[2021-02-13] MEDS: Fenofibrate 145 MG Tablet PO (13:16)
[2021-02-13] MEDS: Escitalopram Oxalate 10 MG Tablet 5 MG PO (13:17)
--- NOTE | 2021-02-13 13:28 | PCM.PN.HOSP ---
Documented by User: Syeda Townsend NP, BAKERY WORKER CONVEYOR LINE-C 02/13/21 13:39 Subjective Subjective Patient seen and examined. Underwent left femur reduction, intramedullary nail fixation. Reports burning sensation left lower extremity however denies significant pain. Therapy to evaluate this afternoon. Patient denies other symptoms or complaints. Objective Data Objective Data Vital Signs: Vital Signs Temp Pulse Resp BP Pulse Ox 97.5 F L 91 18 128/59 H 91 02/13/21 12:13 02/13/21 13:16 02/13/21 12:13 02/13/21 12:13 02/13/21 12:13 Oxygen Flow Rate (L/min) 3 Oxygen Delivery Method Room Air Weight: 172 lb Body Mass Index (BMI) 30.4 Intake & Output: Intake and Output for Last 24 Hours 02/11/21 02/12/21 02/13/21 23:59 23:59 23:59 Intake Total 2436.67 / 2436.67 Output Total 1025 / 1025 Balance 1411.67 / 1411.67 Lab / Micro Data Result Diagrams: 02/13/21 11:15 02/13/21 05:45 Labs: Laboratory Results - last 24 hr 02/12/21 16:20: WBC 7.3, RBC 4.06 L, Hgb 12.4, Hct 39.7, MCV 97.8, MCH 30.5, MCHC 31.2 L, RDW Std Deviation 47.2 H, RDW Coeff of Lexy 13.2, Plt Count 203, MPV 11.4, Immature Gran % (Auto) 0.400, Neut % (Auto) 72.3 H, Lymph % (Auto) 17.0 L, [place] % (Auto) 8.0, Eos % (Auto) 1.9, Baso % (Auto) 0.4, Absolute Neuts (auto) 5.3, Absolute Lymphs (auto) 1.25, Nucleated RBC % 0 02/12/21 16:20: PT 14.3, INR 1.2, APTT 22.2 L 02/12/21 16:20: Sodium 143, Potassium 3.7, Chloride 107, Carbon Dioxide 30.0, Anion Gap 6, BUN 33 H, Creatinine 1.63 H, Estim Creat Clear Calc 23.15, Est GFR (MDRD) Af Amer 39 L, Est GFR (MDRD) Non-Af 32 L, BUN/Creatinine Ratio 20.2 H, Glucose 145 H, Calcium 9.0, Total Bilirubin 0.40, AST 29, ALT 26, Alkaline Phosphatase 32 L, Total Protein 6.3 L, Albumin 3.3, Globulin 3.0, Albumin/Globulin Ratio 1.1 02/12/21 16:20: Hemoglobin A1c 5.9 H 02/12/21 16:20: Blood Type A NEGATIVE, Antibody Screen NEGATIVE 02/12/21 16:30: Urine Color Yellow, Urine Clarity Clear, Urine pH 5.0, Ur Specific [place] 1.020, Urine Protein Negative, Urine Glucose (UA) Normal, Urine Ketones Negative, Urine Occult Blood Negative, Urine Nitrite Negative, Urine Bilirubin Negative, Urine Urobilinogen Normal, Ur Leukocyte Esterase 25 H, Urine RBC 0 SEEN, Urine WBC 0 SEEN, Ur Squamous Epith Cells 0 SEEN, Urine Bacteria 0 SEEN, Urine Mucus 0 SEEN 02/13/21 05:45: WBC 5.8, RBC 3.53 L, Hgb 11.1 L, Hct 34.4 L, MCV 97.5, MCH 31.4, MCHC 32.3, RDW Std Deviation 48.3 H, RDW Coeff of Lexy 13.5, Plt Count 162, MPV 11.6, Immature Gran % (Auto) 0.500, Neut % (Auto) 54.0, Lymph % (Auto) 30.4, [place] % (Auto) 11.7 H, Eos % (Auto) 2.9, Baso % (Auto) 0.5, Absolute Neuts (auto) 3.2, Absolute Lymphs (auto) 1.77, Nucleated RBC % 0 02/13/21 05:45: Sodium 144, Potassium 3.6, Chloride 108 H, Carbon Dioxide 30.0, Anion Gap 6, BUN 29 H, Creatinine 1.24 H, Estim Creat Clear Calc 30.43, Est GFR (MDRD) Af Amer 54 L, Est GFR (MDRD) Non-Af 44 L, BUN/Creatinine Ratio 23.4 H, Glucose 94, Calcium 8.2 L 02/13/21 11:15: WBC 6.1, RBC 3.51 L, Hgb 11.0 L, Hct 34.4 L, MCV 98.0, MCH 31.3, MCHC 32.0, RDW Std Deviation 47.5 H, RDW Coeff of Lexy 13.3, Plt Count 157, MPV 11.1 Micro: Microbiology 02/12/21 16:30 Nasal Secretion SARS-CoV-2 Antigen (Rapid) - Final Radiography Diagnostic Testing: Radiology Impression Femur X-Ray 02/12/21 14:42 IMPRESSION: Acute displaced fracture of the proximal one third femoral shaft Electronically Signed: Sebastian Heart MD at 16:25 EDT , Service support , Pelvis X-Ray 02/12/21 14:42 IMPRESSION: 1. No acute findings. 2. Degenerative changes of the lumbar spine. Electronically Signed: Desire Lagunas MD at 16:19 EDT Tel , Service support , Chest X-Ray 02/12/21 15:45 IMPRESSION: Degenerative changes, as described above. No demonstrated acute cardiopulmonary process. Electronically Signed: Sebastian Heart MD at 16:58 EDT , Service support , Hip/Pelvis X-Ray 02/13/21 08:45 Physical Exam Const alert, oriented x3 and no apparent distress Orientation / Consciousness: awake, oriented to person, oriented to place and oriented to time HEENT normocephalic and moist oral mucous membranes Eyes PERRL, EOMs intact bilaterally and conjunctivae normal Neck no lymphadenopathy Resp normal respiratory effort and clear to auscultation bilaterally Cardio regular rate, regular rhythm and no murmurs Peripheral Pulses: pulses 2+ throughout GI normal to inspection, nondistended, normoactive bowel sounds, non-tender and non-distended Extremity normal to inspection Skin no rashes or lesions noted Skin Narrative: Left lower extremity postop dressing intact. Lesions: no lesions Rashes: no rashes Trauma: no lacerations or abrasions Neuro CN's II-XII intact bilaterally, no focal motor deficits, no sensory deficits noted and deep tendon reflexes 2+ bilaterally Psych mental status grossly normal and affect normal Assessment & Plan Assessment/Plan (1) Closed femur fracture: PLAN: 1. Acute traumatic displaced proximal femur fracture- PT/OT. As needed pain regimen. Underwent left femur reduction with intramedullary nail fixation 02/13/2021. Management per orthopedic medicine. 2. Acute kidney injury-Hold HCTZ. Improving, trend BMP. 3. Prediabetes-hemoglobin A1c 5.9%. Recommend dietary modifications. 4. Hypertension-stable, hold HCTZ. 5. Hyperlipidemia-continue statin. 6. Hypothyroidism-continue Synthroid regimen. 7. Osteoarthritis-hold Celebrex. As needed Tylenol. 8. History of MRSA infection requiring I&D, behind right ear-patient reports approximately 10 years ago. DVT prophylaxis-Lovenox subcu Discharge plan: SNF for rehab pending repeat orthopedic medicine eval and facility approval. This patient was seen by MARCUS Dodd under the supervision of Dr. Cai. Documented by User: Dr. Rogelio Cai DO 02/13/21 14:02 Subjective Subjective S/P IM nail. Objective Data Lab / Micro Data Result Diagrams: 02/13/21 11:15 02/13/21 05:45 Physical Exam Const alert Exam Limitations: no limitations Resp normal respiratory effort, no retractions, no use of accessory muscles and clear to auscultation bilaterally Cardio regular rate, regular rhythm, S1 normal heart sound and S2 normal heart sound GI normal to inspection, nondistended, normoactive bowel sounds, soft to palpation, non-tender and non-distended Neuro Sensorium / Orientation: awake and alert Assessment & Plan Assessment/Plan (1) Closed femur fracture: PLAN: Patient seen and examined independently. Data and vitals reviewed. I agree with the above note by the nurse practitioner. 1. Left displaced femur fracture 02/13: Patient underwent intramedullary nail. Check 25-hydroxy vitamin D level and replace if less than 50 2. Acute kidney injury Improving HCTZ currently held 3. Debility Patient will require snf facility upon discharge Charges/Coding Visit Charges Inpatient E&M: 21611 Subs Hosp L2
[2021-02-13] MEDS: Cefazolin 1 GM/50 ML BAG IV ×2 (13:53→20:15)
[2021-02-13] MEDS: Aspirin 81 MG TAB.CHEW PO (20:08)
[2021-02-13] MEDS: Docusate Sodium 100 MG Capsule 200 MG PO (20:11)
[2021-02-13] MEDS: Acetaminophen 500 MG Tablet 1000 MG PO (20:11)
[2021-02-14] VITALS (7 sets, daily range): BP systolic 100–120; BP diastolic 46–57; PULSE 72–97; RESP 16–18; TEMP 35.8–37.2; O2SAT 75–95
[2021-02-14] MEDS: oxyCODONE 5 MG Tablet 10 MG PO ×2 (00:24→13:32)
[2021-02-14] MEDS: Levothyroxine 100 MCG Tablet PO (04:47)
[2021-02-14 06:06] LABS: Absolute Lymphocyte Count 1.54 X10^3/uL (0.83-4.51); Absolute Neutrophil Count 4.5 X10^3/uL (2.0-7.7); Basophil# 0.01 X10^3/uL; Basophil% 0.1 % (0-1); Eosinophil# 0.03 X10^3/uL; Eosinophils% 0.4 % (0-5); Hemoglobin 9.3 g/dL (12.0-15.0); Lymphocyte # 1.54 X10^3/ul (0.83-4.51); Lymphocyte % 22.2 % (19-41); Mean Corp Hgb Conc 32.1 g/dL (32-36); Mean Corpuscular Hgb 31.4 pg (27.0-32.0); Mean Platelet Vol. 11.4 fl (6.2-12.0); Monocyte# 0.82 X10^3/uL; Monocyte% 11.8 % (0-10); NRBC Flagged by Analyzer 0 % (0-5); Neutrophil # 4.53 X10^3/uL (2.7-7.7); Neutrophil % 65.2 % (47-70); Platelet Count 151 K/mm3 (150-450); RBC Distribution Width CV 13.5 % (11.6-14.6); RBC Distribution Width SD 48.5 fl (35.1-43.9); Red Blood Count 2.96 M/mm3 (4.2-5.4)
[2021-02-14 06:36] LABS: Anion Gap 2 (5-15); BUN 21 mg/dL (7-18); BUN/Creat Ratio 16.8 RATIO (10-20); Calcium,Total 7.7 mg/dL (8.5-10.1); Chloride 108 mmol/L (98-107); Creatinine, Serum 1.25 mg/dL (0.55-1.02); EST Glomerular Filtration Rate 44 mL/min (>60); Est Glom Filt Rate - Afr Amer 53 mL/min (>60); Estimated Creatinine Clearance 30.19 ml/min; Glucose 118 mg/dL (74-106); Potassium 4.1 mmol/L (3.5-5.1); Sodium Level 143 mmol/L (136-145)
[2021-02-14] MEDS: Fenofibrate 145 MG Tablet PO (08:49)
[2021-02-14] MEDS: Aspirin 81 MG TAB.CHEW PO ×2 (09:10→20:45)
[2021-02-14] MEDS: Metoprolol Tartrate 50 MG Tablet PO (09:10)
[2021-02-14] MEDS: Escitalopram Oxalate 10 MG Tablet 5 MG PO (09:11)
[2021-02-14] MEDS: Docusate Sodium 100 MG Capsule 200 MG PO ×2 (09:12→20:45)
[2021-02-14] MEDS: Pravastatin 40 MG Tablet PO (09:29)
--- NOTE | 2021-02-14 11:00 | PCM.PN.HOSP ---
Documented by User: Syeda Townsend NP, MANAGER BUSINESS INFORMATION-C 02/14/21 11:06 Subjective Subjective Patient seen and examined. Denies significant pain. Tolerating ambulation. Denies other symptoms or complaints. Plan for rehab unit 02/15/2021. Objective Data Objective Data Vital Signs: Vital Signs Temp Pulse Resp BP Pulse Ox 96.5 F L 72 16 110/46 L 94 02/14/21 10:30 02/14/21 10:30 02/14/21 10:30 02/14/21 10:30 02/14/21 10:30 Oxygen Flow Rate (L/min) 3 Oxygen Delivery Method Room Air Weight: 172 lb Body Mass Index (BMI) 30.4 Intake & Output: Intake and Output for Last 24 Hours 02/12/21 02/13/21 02/14/21 23:59 23:59 23:59 Intake Total 3033.34 / 3033.34 1200 / 1200 Output Total 1475 / 1475 1600 / 1600 Balance 1558.34 / 1558.34 -400 / -400 Lab / Micro Data Result Diagrams: 02/14/21 05:30 02/14/21 05:30 Labs: Laboratory Results - last 24 hr 02/13/21 11:15: WBC 6.1, RBC 3.51 L, Hgb 11.0 L, Hct 34.4 L, MCV 98.0, MCH 31.3, MCHC 32.0, RDW Std Deviation 47.5 H, RDW Coeff of Lexy 13.3, Plt Count 157, MPV 11.1 02/14/21 05:30: WBC 7.0, RBC 2.96 L, Hgb 9.3 L, Hct 29.0 L, MCV 98.0, MCH 31.4, MCHC 32.1, RDW Std Deviation 48.5 H, RDW Coeff of Lexy 13.5, Plt Count 151, MPV 11.4, Immature Gran % (Auto) 0.300, Neut % (Auto) 65.2, Lymph % (Auto) 22.2, [place] % (Auto) 11.8 H, Eos % (Auto) 0.4, Baso % (Auto) 0.1, Absolute Neuts (auto) 4.5, Absolute Lymphs (auto) 1.54, Nucleated RBC % 0 02/14/21 05:30: Sodium 143, Potassium 4.1, Chloride 108 H, Carbon Dioxide 33.0 H, Anion Gap 2 L, BUN 21 H, Creatinine 1.25 H, Estim Creat Clear Calc 30.19, Est GFR (MDRD) Af Amer 53 L, Est GFR (MDRD) Non-Af 44 L, BUN/Creatinine Ratio 16.8, Glucose 118 H, Calcium 7.7 L Micro: Microbiology 02/12/21 16:30 Nasal Secretion SARS-CoV-2 Antigen (Rapid) - Final Radiography Diagnostic Testing: Radiology Impression Hip/Pelvis X-Ray 02/13/21 08:45 Physical Exam Const alert, oriented x3 and no apparent distress Orientation / Consciousness: awake, oriented to person, oriented to place and oriented to time HEENT normocephalic and moist oral mucous membranes Eyes PERRL, EOMs intact bilaterally and conjunctivae normal Neck no lymphadenopathy Resp normal respiratory effort and clear to auscultation bilaterally Cardio regular rate, regular rhythm and no murmurs Peripheral Pulses: pulses 2+ throughout GI normal to inspection, nondistended, normoactive bowel sounds, non-tender and non-distended Extremity normal to inspection Skin no rashes or lesions noted Skin Narrative: Postop dressing intact. Lesions: no lesions Rashes: no rashes Trauma: no lacerations or abrasions Neuro CN's II-XII intact bilaterally, no focal motor deficits, no sensory deficits noted and deep tendon reflexes 2+ bilaterally Psych mental status grossly normal and affect normal Assessment & Plan Assessment/Plan (1) Closed femur fracture: PLAN: 1. Acute traumatic displaced proximal femur fracture- PT/OT. As needed pain regimen. Underwent left femur reduction with intramedullary nail fixation 02/13/2021. Management per orthopedic medicine. Rehab unit 02/15/2021. 2. Acute kidney injury on presumed chronic kidney disease stage IIIa-HCTZ on hold. Appears stable, trend BMP. 3. Prediabetes-hemoglobin A1c 5.9%. Recommend dietary modifications. 4. Hypertension-stable, hold HCTZ. 5. Hyperlipidemia-continue statin. 6. Hypothyroidism-continue Synthroid regimen. 7. Osteoarthritis-hold Celebrex. As needed Tylenol. 8. History of MRSA infection requiring I&D, behind right ear-patient reports approximately 10 years ago. 9. Mild acute blood loss anemia, expected outcome related to #1-stable, trend CBC. DVT prophylaxis-SCDs, pharmacologic prophylaxis per surgery recommendations Discharge plan: Discharge to rehab unit 02/15/2021. This patient was seen by MARCUS Dodd under the supervision of Dr. Cai. Documented by User: Dr. Rogelio Cai, 02/14/21 13:08 Subjective Subjective Feeling well. Getting ready to work with therapy. Objective Data Lab / Micro Data Result Diagrams: 02/14/21 05:30 02/14/21 05:30 Physical Exam Const alert Resp normal respiratory effort and no retractions Cardio regular rate, regular rhythm, S1 normal heart sound and S2 normal heart sound GI normal to inspection, nondistended, normoactive bowel sounds, soft to palpation, non-tender and non-distended Neuro Sensorium / Orientation: awake and alert Assessment & Plan Assessment/Plan (1) Closed femur fracture: PLAN: Patient seen and examined independently. Data and vitals reviewed. I agree with the above note by the nurse practitioner. 1. Left displaced femur fracture 02/13: Patient underwent intramedullary nail. Check 25-hydroxy vitamin D level and replace if less than 50 2. Acute kidney injury Improving HCTZ currently held 3. Debility Plan for acute rehab on 02/15 Charges/Coding Visit Charges Inpatient E&M: 49554 Subs Hosp L2
--- NOTE | 2021-02-14 20:14 | PN.ORTHO_ITS ---
Subjective Subjective Patient is postoperative day #1 from left femoral nailing for femoral shaft fracture. She denies chest pain or shortness of breath. She denies productive cough. She feels her pain is much better than before surgery. Currently 2 out of 10. She feels the pain medication is helping. She is planning on discharge to rehab facility. She has been up out of bed with assistance. She now feels like her left leg is actually better and stronger than her right leg. Also complains of some right arm weakness after previous elbow dislocation. She is hoping for further therapy for her arm as well. Objective Data Objective Data Patient's left lower extremity is clinically well aligned without shortening or deformity. Left leg is very stable. No severe pain with hip or knee motion. No calf pain or swelling. Negative Homans' sign. Legs are neurovascular intact. Good active motion toes and ankles. Good distal pulses. No severe swe lling or bruising about the thigh hip or knee. Laboratory work reviewed Vital Signs: Vital Signs Temp Pulse Resp BP Pulse Ox 99.0 F 87 16 105/51 L 92 02/14/21 16:30 02/14/21 16:30 02/14/21 16:30 02/14/21 16:30 02/14/21 16:30 Oxygen Flow Rate (L/min) 3 Oxygen Delivery Method Room Air Weight: 78.018 kg Body Mass Index (BMI) 30.4 Intake & Output: Intake and Output for Last 24 Hours 02/12/21 02/13/21 02/14/21 23:59 23:59 23:59 Intake Total 3033.34 / 3033.34 1200 / 1200 Output Total 1475 / 1475 1999 / 1999 Balance 1558.34 / 1558.34 -800 / -800 Lab / Micro Data Result Diagrams: 02/14/21 05:30 02/14/21 05:30 Labs: Laboratory Results - last 24 hr 02/14/21 05:30: WBC 7.0, RBC 2.96 L, Hgb 9.3 L, Hct 29.0 L, MCV 98.0, MCH 31.4, MCHC 32.1, RDW Std Deviation 48.5 H, RDW Coeff of Lexy 13.5, Plt Count 151, MPV 11.4, Immature Gran % (Auto) 0.300, Neut % (Auto) 65.2, Lymph % (Auto) 22.2, [place] % (Auto) 11.8 H, Eos % (Auto) 0.4, Baso % (Auto) 0.1, Absolute Neuts (auto) 4.5, Absolute Lymphs (auto) 1.54, Nucleated RBC % 0 02/14/21 05:30: Sodium 143, Potassium 4.1, Chloride 108 H, Carbon Dioxide 33.0 H , Anion Gap 2 L, BUN 21 H, Creatinine 1.25 H, Estim Creat Clear Calc 30.19, Est GFR (MDRD) Af Amer 53 L, Est GFR (MDRD) Non-Af 44 L, BUN/Creatinine Ratio 16.8, Glucose 118 H, Calcium 7.7 L Micro: Microbiology 02/12/21 16:30 Nasal Secretion SARS-CoV-2 Antigen (Rapid) - Final Assessment & Plan Assessment/Plan (1) Closed femur fracture: PLAN: Her diagnosis and treatment options regarding her left femoral fracture treated with intramedullary nailing discussed with her at length. She can be weightbearing as tolerated. She can ambulate with assistance. Walker. She will continue on aspirin for DVT prevention. She will continue on the medical service for evaluation of her medical comorbidities with treatment. She can be discharged to [facility] when arrangements are made. She can follow-up in the orthopedic office in 2 weeks for x-rays and evaluation and staple removal. Oral pain medications if needed. Bandage can be removed in 5 to 7 days and replaced with gauze and paper tape if needed. Mild blood loss anemia noted related to surgical procedure, not unexpected. Medicine to follow
[2021-02-15 02:35] VITALS: BP 128/76; PULSE 84; RESP 18; TEMP 37.1; O2SAT 96
[2021-02-15 02:50] VITALS: O2SAT 82
[2021-02-15 03:10] VITALS: O2SAT 93
--- NOTE | 2021-02-15 03:11 | NURSING ---
Pt 02 saturation dropped during beginning of shift, placed on 2 L and satted well, removed by patient and desaturated. Explained to patient that she is now requiring oxygen and pt was not receptive. Placed on bedside pulse ox, pt stated that she did not like the beeping. This nurse explained that the monitor is beeping because her oxygen is dropping without it on. Placed back on 2L 02, satting well at 93-94% on 2L. Dr. Fonseca notified, will monitor and update as needed.
[2021-02-15] MEDS: Levothyroxine 100 MCG Tablet PO (05:13)
[2021-02-15 05:39] LABS: Absolute Lymphocyte Count 1.82 X10^3/uL (0.83-4.51); Absolute Neutrophil Count 4.1 X10^3/uL (2.0-7.7); Basophil# 0.02 X10^3/uL; Basophil% 0.3 % (0-1); Eosinophil# 0.12 X10^3/uL; Eosinophils% 1.8 % (0-5); Hematocrit 31.7 % (37-47); Hemoglobin 10.2 g/dL (12.0-15.0); Lymphocyte # 1.82 X10^3/ul (0.83-4.51); Lymphocyte % 27.1 % (19-41); Mean Corp Hgb Conc 32.2 g/dL (32-36); Mean Corpuscular Hgb 31.2 pg (27.0-32.0); Mean Corpuscular Volume 96.9 fL (81-99); Mean Platelet Vol. 11.1 fl (6.2-12.0); Monocyte# 0.65 X10^3/uL; Monocyte% 9.7 % (0-10); NRBC Flagged by Analyzer 0 % (0-5); Neutrophil # 4.06 X10^3/uL (2.7-7.7); Neutrophil % 60.5 % (47-70); Platelet Count 169 K/mm3 (150-450); RBC Distribution Width CV 13.6 % (11.6-14.6); RBC Distribution Width SD 48.8 fl (35.1-43.9); Red Blood Count 3.27 M/mm3 (4.2-5.4); White Blood Count 6.7 K/mm3 (4.4-11.0)
[2021-02-15 06:11] LABS: Anion Gap 7 (5-15); BUN 19 mg/dL (7-18); BUN/Creat Ratio 17.1 RATIO (10-20); Calcium,Total 8.3 mg/dL (8.5-10.1); Chloride 106 mmol/L (98-107); Creatinine, Serum 1.11 mg/dL (0.55-1.02); EST Glomerular Filtration Rate 50 mL/min (>60); Est Glom Filt Rate - Afr Amer 61 mL/min (>60); Glucose 132 mg/dL (74-106); Potassium 3.7 mmol/L (3.5-5.1); Sodium Level 143 mmol/L (136-145)
[2021-02-15 08:35] VITALS: BP 133/73; PULSE 90; RESP 18; TEMP 36.8; O2SAT 94
[2021-02-15] MEDS: Fenofibrate 145 MG Tablet PO (09:21)
[2021-02-15] MEDS: Aspirin 81 MG TAB.CHEW PO (09:21)
[2021-02-15] MEDS: Pravastatin 40 MG Tablet PO (09:22)
[2021-02-15] MEDS: Docusate Sodium 100 MG Capsule 200 MG PO (09:22)
[2021-02-15] MEDS: Escitalopram Oxalate 10 MG Tablet 5 MG PO (09:23)
[2021-02-15 09:24] VITALS: PULSE 90
[2021-02-15] MEDS: Metoprolol Tartrate 50 MG Tablet PO (09:24)
[2021-02-15] MEDS: oxyCODONE 5 MG Tablet 10 MG PO (09:33)
--- NOTE | 2021-02-15 11:28 | PCM.DC ---
Discharge Instructions Diet Discharge Diet: Carb Control Diet Activity Discharge Activity: Return to Normal Activity Weight Bearing Status: Weight bearing as tolerated (left lower extremity) Dressing / Incision Call your doctor if you observe: Fever of 101 or Higher, Shortness of breath, Dizziness and Chest pain Follow Up Care Test Results: Test results from this visit will be discussed in further detail at your follow-up appointment, if applicable. Discharge Plan Admission Admit Date/Time: 02/12/21 17:36 Primary Reason for Your Visit: Closed femur fracture Attending Provider: Fili Neumann Primary Care Provider: Jorge Pryor Consulting Providers: Chidi Mccann Instructions Additional Instructions / Restrictions: Weightbearing left lower extremity as tolerated. Use walker. Remove postop dressing in 5 to 7 days and replace with gauze and paper tape if needed. Discharge Orders/Prescriptions Prescriptions: New acetaminophen 500 mg Tablet 1,000 mg PO Q8H PRN (Reason: Pain Score 1-10/Temp > 100.7 F) Qty: 0 RF: 0 aspirin 81 mg Tablet,Chewable 81 mg PO BID Qty: 0 RF: 0 docusate sodium [DOK] 100 mg Capsule 200 mg PO BID Qty: 0 RF: 0 oxycodone 5 mg Tablet 10 mg PO Q4H PRN PRN (Reason: Pain Score 4-5) Qty: 0 RF: 0 Continued pravastatin 40 MG tablet 40 mg PO QHS RF: 0 levothyroxine [Synthroid] 100 MCG tablet 100 mcg PO DAILY RF: 0 omega-3 fatty acids-fish oil 1 EACH capsule 1 ea PO QHS RF: 0 cetirizine [Zyrtec] 10 mg Tablet 10 mg PO DAILY RF: 0 prednisone 5 mg tablet 5 mg PO DAILY RF: 0 tramadol 50 mg tablet 50 mg PO Q6H PRN (Reason: Pain) RF: 0 metoprolol tartrate 50 mg tablet 50 mg PO BID RF: 0 escitalopram oxalate 5 mg tablet 5 mg PO DAILY RF: 0 fenofibrate 160 mg tablet 160 mg PO DAILY RF: 0 Centrum Silver Women 8 mg iron-400 mcg-300 mcg Tablet 1 tab PO DAILY RF: 0 Discontinued celecoxib [Celebrex] 200 MG capsule 200 mg PO DAILY RF: 0 hydrochlorothiazide 25 MG tablet 25 mg PO DAILY RF: 0 Referrals / Follow Up: Jorge Pryor DO [Primary Care Provider] - Within 2 Weeks Chidi Mccann MD [STAFF PHYSICIAN] - Within 2 Weeks Disposition Disposition (needs filled in before D/C Order can be placed): Inpatient Rehab Unit/Facility
--- NOTE | 2021-02-15 11:46 | DS.PCM_ITS ---
Documented by User: Syeda Townsend NP, SQL SERVER ARCHITECT-C 02/15/21 11:51 Providers Date of Admission: 02/12/21 Date of Discharge: 02/15/21 Primary Care Physician: Dr. Jorge Pryor DO Consultations 02/12/21 18:56 Consult: Orthopedics Routine Consulting Provider: Chidi Mccann Reason for Consult: femure fx EMERGENT Consult: No MD Notified: Yes Date Notified: 02/12/21 Time Notified: 17:35 Method of Notification: Verbal Comments:: consulted/notified by ER Reason For Visit: DISPLACED PROXIMAL FEMUR FRACTURE Diagnosis Discharge Diagnosis (1) Closed femur fracture: Status: Acute Code(s): S72.90XA - Unspecified fracture of unspecified femur, initial encounter for closed fracture Medications at Discharge Home Medications levothyroxine [Synthroid] 100 mcg PO DAILY 10/03/14 omega-3 fatty acids-fish oil 1 ea PO QHS 10/03/14 pravastatin 40 mg PO QHS 10/03/14 Centrum Silver Women 1 tab PO DAILY 02/12/21 cetirizine [Zyrtec] 10 mg PO DAILY 02/12/21 escitalopram oxalate 5 mg PO DAILY 02/12/21 fenofibrate 160 mg PO DAILY 02/12/21 metoprolol tartrate 50 mg PO BID 02/12/21 prednisone 5 mg PO DAILY 02/12/21 tramadol 50 mg PO Q6H PRN 02/12/21 acetaminophen 1,000 mg PO Q8H PRN #0 tab 02/15/21 aspirin 81 mg PO BID #0 tab 02/15/21 docusate sodium [DOK] 200 mg PO BID #0 cap 02/15/21 oxycodone 10 mg PO Q4H PRN PRN #0 tab 02/15/21 Hospital Course Operations - (left femur reduction with intramedullary nail fixation 02/13/2021) Procedures None Summary of Care Provided Minutes Spent on Discharge: 35 Hospital Course: Patient is a 80-year-old female admitted 02/12/2021 due to mechanical fall with left leg pain. 1. Acute traumatic displaced proximal femur fracture- PT/OT. As needed pain regimen. Underwent left femur reduction with intramedullary nail fixation 02/13/2021. Aspirin 81 mg twice daily for DVT prophylaxis per Ortho recommendations. Remove dressing in 5 to 7 days. Weightbearing as tolerated left lower extremity. Scheduled Colace per patient request. Follow-up with orthopedic medicine in 2 weeks. 2. Acute kidney injury on presumed chronic kidney disease stage IIIa-HCTZ discontinued, KATHERINE resolved. Appears stable, trend BMP. 3. Prediabetes-hemoglobin A1c 5.9%. Recommend dietary modifications. 4. Hypertension-stable, continue metoprolol, HCTZ discontinued. 5. Hyperlipidemia-continue statin. 6. Hypothyroidism-continue Synthroid regimen. 7. Osteoarthritis-hold Celebrex. As needed Tylenol. On chronic low dose pre dnisone as well. 8. History of MRSA infection requiring I&D, behind right ear-patient reports approximately 10 years ago. 9. Mild acute blood loss anemia, expected outcome related to #1-stable, follow CBC. 10. Depression-on escitalopram. Physical Exam Const alert, oriented x3 and no apparent distress Orientation / Consciousness: awake, oriented to person, oriented to place and oriented to time HEENT normocephalic and moist oral mucous membranes Eyes PERRL, EOMs intact bilaterally and conjunctivae normal Neck no lymphadenopathy Resp normal respiratory effort and clear to auscultation bilaterally Cardio regular rate, regular rhythm and no murmurs Peripheral Pulses: pulses 2+ throughout GI normal to inspection, nondistended, normoactive bowel sounds, non-tender and non-distended Extremity normal to inspection Skin no rashes or lesions noted Skin Narrative: Postop dressing intact. Lesions: no lesions Rashes: no rashes Trauma: no lacerations or abrasions Neuro CN's II-XII intact bilaterally, no focal motor deficits, no sensory deficits noted and deep tendon reflexes 2+ bilaterally Psych mental status grossly normal and affect normal Patient seen and examined prior to discharge. Physical assessment as noted above. Patient is stable for discharge with follow up recommendations as noted above. This patient was seen by MARCUS Dodd under the supervision of Dr. Neumann. Weight / BMI Weight Weight: 172 lb Body Mass Index (BMI) 30.4 ABG / Lab / Microbiology Data Result Diagrams: 02/15/21 05:18 02/15/21 05:18 Laboratory: Laboratory Results - last 24 hr 02/15/21 05:18: WBC 6.7, RBC 3.27 L, Hgb 10.2 L, Hct 31.7 L, MCV 96.9, MCH 31.2, MCHC 32.2, RDW Std Deviation 48.8 H, RDW Coeff of Lexy 13.6, Plt Count 169, MPV 11.1, Immature Gran % (Auto) 0.600, Neut % (Auto) 60.5, Lymph % (Auto) 27.1, [place] % (Auto) 9.7, Eos % (Auto) 1.8, Baso % (Auto) 0.3, Absolute Neuts (auto) 4.1, Absolute Lymphs (auto) 1.82, Nucleated RBC % 0 02/15/21 05:18: Sodium 143, Potassium 3.7, Chloride 106, Carbon Dioxide 30.0, Anion Gap 7, BUN 19 H, Creatinine 1.11 H, Estim Creat Clear Calc 34.00, Est GFR (MDRD) Af Amer 61, Est GFR (MDRD) Non-Af 50 L, BUN/Creatinine Ratio 17.1, Glucose 132 H, Calcium 8.3 L Microbiology: Microbiology 02/12/21 16:30 Nasal Secretion SARS-CoV-2 Antigen (Rapid) - Final D/C Instructions Discharge Diet: Carb Control Diet Weight Bearing Status: Weight bearing as tolerated (left lower extremity) Call your doctor if you observe: Fever of 101 or Higher, Shortness of breath, Dizziness and Chest pain Meaningful Use Info Meaningful Use Diagnoses (Choose all that apply): None applicable Discharge Plan Admission Admit Date/Time: 02/12/21 17:36 Primary Reason for Your Visit: Closed femur fracture Attending Provider: Fili Neumann Primary Care Provider: Jorge Pryor Consulting Providers: Chidi Mccann Instructions Additional Instructions / Restrictions: Weightbearing left lower extremity as tolerated. Use walker. Remove postop dressing in 5 to 7 days and replace with gauze and paper tape if needed. Discharge Orders/Prescriptions Prescriptions: New acetaminophen 500 mg Tablet 1,000 mg PO Q8H PRN (Reason: Pain Score 1-10/Temp > 100.7 F) Qty: 0 RF: 0 aspirin 81 mg Tablet,Chewable 81 mg PO BID Qty: 0 RF: 0 docusate sodium [DOK] 100 mg Capsule 200 mg PO BID Qty: 0 RF: 0 oxycodone 5 mg Tablet 10 mg PO Q4H PRN PRN (Reason: Pain Score 4-5) Qty: 0 RF: 0 Continued pravastatin 40 MG tablet 40 mg PO QHS RF: 0 levothyroxine [Synthroid] 100 MCG tablet 100 mcg PO DAILY RF: 0 omega-3 fatty acids-fish oil 1 EACH capsule 1 ea PO QHS RF: 0 cetirizine [Zyrtec] 10 mg Tablet 10 mg PO DAILY RF: 0 prednisone 5 mg tablet 5 mg PO DAILY RF: 0 tramadol 50 mg tablet 50 mg PO Q6H PRN (Reason: Pain) RF: 0 metoprolol tartrate 50 mg tablet 50 mg PO BID RF: 0 escitalopram oxalate 5 mg tablet 5 mg PO DAILY RF: 0 fenofibrate 160 mg tablet 160 mg PO DAILY RF: 0 Centrum Silver Women 8 mg iron-400 mcg-300 mcg Tablet 1 tab PO DAILY RF: 0 Discontinued celecoxib [Celebrex] 200 MG capsule 200 mg PO DAILY RF: 0 hydrochlorothiazide 25 MG tablet 25 mg PO DAILY RF: 0 Referrals / Follow Up: Jorge Pryor DO [Primary Care Provider] - Within 2 Weeks Chidi Mccann MD [STAFF PHYSICIAN] - Within 2 Weeks Disposition Disposition (needs filled in before D/C Order can be placed): Inpatient Rehab Unit/Facility Documented by User: Dr. Fili Neumann MD 02/15/21 13:25 Providers Date of Admission: 02/12/21 Reason For Visit: DISPLACED PROXIMAL FEMUR FRACTURE Medications at Discharge Home Medications levothyroxine [Synthroid] 100 mcg PO DAILY 10/03/14 omega-3 fatty acids-fish oil 1 ea PO QHS 10/03/14 pravastatin 40 mg PO QHS 10/03/14 Centrum Silver Women 1 tab PO DAILY 02/12/21 cetirizine [Zyrtec] 10 mg PO DAILY 02/12/21 escitalopram oxalate 5 mg PO DAILY 02/12/21 fenofibrate 160 mg PO DAILY 02/12/21 metoprolol tartrate 50 mg PO BID 02/12/21 prednisone 5 mg PO DAILY 02/12/21 tramadol 50 mg PO Q6H PRN 02/12/21 acetaminophen 1,000 mg PO Q8H PRN #0 tab 02/15/21 aspirin 81 mg PO BID #0 tab 02/15/21 docusate sodium [DOK] 200 mg PO BID #0 cap 02/15/21 oxycodone 10 mg PO Q4H PRN PRN #0 tab 02/15/21 Hospital Course Summary of Care Provided Hospital Course: This patient was seen in conjunction with Syeda MONK. I have independently interviewed and examined the patient and reviewed pertinent history, examination findings, laboratory and plan of management. I have reviewed the note and agree with the documented findings with the few additional points. In brief, patient is admitted for mechanical fall with left leg pain and found to have left proximal fracture. Patient was admitted with a diagnosis of acute displaced proximal femur fracture, pathological from osteoporosis. Patient underwent left femur reduction with intramedullary nail fixation on 02/13. KATHERINE resolved. Patient has chronic kidney disease stage III. Other comorbidities as mentioned above. Discharged to acute rehab. Discharge medication reconciliation done. Discharge follow-up instructions completed. Discharge process discussed with the patient and all questions were answered to patient's satisfaction. Total time spent, exact 35 minutes on discharge meds reconciliation, examination, coordination of care with nurses and ancillary staff, review of imaging and blood test and discussion with the patient on follow-up instructions I have discussed my assessment with Syeda MONK and orders have been reviewed. Physical Exam Narrative General: Alert, Oriented x3, Cooperative HEENT: Atraumatic, PERRLA, EOMI, Normocephalic Oral: No Gingival or Mucosal Lesions/ Ulcerations Neck: Supple, No JVD, Negative Carotid Bruits Lungs: Air entry diminished in bilateral lung bases. No crepitation/rhonchi Cardiovascular: Regular rate, Regular Rhythm, Normal S1, Normal S2, No murmurs Abdomen: Bowel Sounds Present, Soft, Non Tender, Non-Distended : No renal angle tenderness. No suprapubic tenderness. Extremities: No edema, Capillary Refill Less than 3 Seconds Skin: No rashes, No breakdown Musculoskeletal: Left hip surgical dressing is dry. No hematoma or bleeding staining on the dressing. Neurological: Cranial nerves II-XII grossly intact, DTR 2+/4 and Symmetrical, Neuro grossly intact Psych/Mental Status: Normal Affect, Appropriate. ABG / Lab / Microbiology Data Result Diagrams: 02/15/21 05:18 02/15/21 05:18 Discharge Plan Admission Admit Date/Time: 02/12/21 17:36 Primary Reason for Your Visit: Closed femur fracture Attending Provider: Fili Neumann Primary Care Provider: Jorge Pryor Consulting Providers: Chidi Mccann Instructions Additional Instructions / Restrictions: Weightbearing left lower extremity as tolerated. Use walker. Remove postop dressing in 5 to 7 days and replace with gauze and paper tape if needed. Discharge Orders/Prescriptions Prescriptions: New acetaminophen 500 mg Tablet 1,000 mg PO Q8H PRN (Reason: Pain Score 1-10/Temp > 100.7 F) Qty: 0 RF: 0 aspirin 81 mg Tablet,Chewable 81 mg PO BID Qty: 0 RF: 0 docusate sodium [DOK] 100 mg Capsule 200 mg PO BID Qty: 0 RF: 0 oxycodone 5 mg Tablet 10 mg PO Q4H PRN PRN (Reason: Pain Score 4-5) Qty: 0 RF: 0 Continued pravastatin 40 MG tablet 40 mg PO QHS RF: 0 levothyroxine [Synthroid] 100 MCG tablet 100 mcg PO DAILY RF: 0 omega-3 fatty acids-fish oil 1 EACH capsule 1 ea PO QHS RF: 0 cetirizine [Zyrtec] 10 mg Tablet 10 mg PO DAILY RF: 0 prednisone 5 mg tablet 5 mg PO DAILY RF: 0 tramadol 50 mg tablet 50 mg PO Q6H PRN (Reason: Pain) RF: 0 metoprolol tartrate 50 mg tablet 50 mg PO BID RF: 0 escitalopram oxalate 5 mg tablet 5 mg PO DAILY RF: 0 fenofibrate 160 mg tablet 160 mg PO DAILY RF: 0 Centrum Silver Women 8 mg iron-400 mcg-300 mcg Tablet 1 tab PO DAILY RF: 0 Discontinued celecoxib [Celebrex] 200 MG capsule 200 mg PO DAILY RF: 0 hydrochlorothiazide 25 MG tablet 25 mg PO DAILY RF: 0 Referrals / Follow Up: Jorge Pryor DO [Primary Care Provider] - Within 2 Weeks Chidi Mccann MD [STAFF PHYSICIAN] - Within 2 Weeks Disposition Disposition (needs filled in before D/C Order can be placed): Inpatient Rehab Unit/Facility Charges/Coding Visit Charges Inpatient E&M: [id number] [place] [id number]
[2021-02-16 08:08] LABS: Vitamin D,25 Hydroxy 45.3 ng/mL
== END 2021-02-15 14:08 | DRG 481 ==
LOC: ED 17:43 → MS2 17:56
PROVIDERS: Orthopaedic Surgery; Admitting Provider Nurse Practitioner Family; Emergency Provider Emergency Medicine; PCP Student in an Organized Health Care Education/Training Program; Visit Provider Internal Medicine
PROC: 0QS936Z Reposition Left Femoral Shaft with Intramedullary Internal Fixation Device, Percutaneous Approach (ICD-10-PCS; CPT 27245; principal; 2021-02-13 08:15)
DX: M80.052A Age-related osteoporosis with current pathological fracture, left femur, initial encounter for fracture (principal); N17.9 Acute kidney failure, unspecified; E03.9 Hypothyroidism, unspecified; M47.816 Spondylosis without myelopathy or radiculopathy, lumbar region; I12.9 Hypertensive chronic kidney disease with stage 1 through stage 4 chronic kidney disease, or unspecified chronic kidney disease; N18.31 Chronic kidney disease, stage 3a; E78.5 Hyperlipidemia, unspecified; R73.03 Prediabetes; R53.81 Other malaise; F32.A Depression, unspecified; Z86.14 Personal history of Methicillin resistant Staphylococcus aureus infection; Z79.52 Long term (current) use of systemic steroids; Z79.899 Other long term (current) drug therapy; Z87.891 Personal history of nicotine dependence; W18.30XA Fall on same level, unspecified, initial encounter; Y93.01 Activity, walking, marching and hiking; Y92.512 Supermarket, store or market as the place of occurrence of the external cause; Y99.8 Other external cause status; Z23 Encounter for immunization
CPT/HCPCS: 36415; 51702; 71045; 72170; 73502; 73552; 76000; 80048; 80053; 81001; 82306; 83036; 85025; 85027; 85610; 85730; 86850; 86900; 86901; 87426; 93005; 97110; 97162; 97166; 97530; 97535; 99251; 99285; C1776; G0008; J7030; J7120; 90686; A4216; G0463; J2405

== ENCOUNTER 2021-02-15 14:25 | Inpatient (IN) | payer MEDICARE, BC, SELFPAY ==
[2021-02-15 15:03] VITALS: BP 140/56; PULSE 75; RESP 18; TEMP 36.9; O2SAT 100; BMI 30.4
[2021-02-15] MEDS: Acetaminophen 500 MG Tablet 1000 MG PO (18:36)
[2021-02-15 19:39] VITALS: O2SAT 93
[2021-02-15 21:33] VITALS: PULSE 70; O2SAT 99
[2021-02-15 21:59] VITALS: BP 130/57; PULSE 70
[2021-02-15] MEDS: Pravastatin 40 MG Tablet PO (21:59)
[2021-02-15] MEDS: Aspirin 81 MG TAB.CHEW PO (21:59)
[2021-02-15] MEDS: Omega-3 Acid Ethyl Esters 1 GM Capsule PO (21:59)
[2021-02-15] MEDS: Metoprolol Tartrate 50 MG Tablet PO (21:59)
[2021-02-15 22:00] VITALS: BP 130/57; PULSE 70; RESP 16; TEMP 36.6; O2SAT 99
[2021-02-15] MEDS: traMADol 50 MG Tablet PO (22:00)
[2021-02-16] VITALS (7 sets, daily range): BP systolic 141–144; BP diastolic 60–76; PULSE 74–78; RESP 16; TEMP 36.7–37.1; O2SAT 91–99
--- NOTE | 2021-02-16 01:23 | NURSING ---
02/15 @ 2225. PVR #1. 300 ml urine output and BS for 12 ml remaining.
--- NOTE | 2021-02-16 01:25 | NURSING ---
Reviewed and agree with WEB PRESS OPERATOR documentation and assessment charting.
[2021-02-16] MEDS: Levothyroxine 100 MCG Tablet PO (06:28)
[2021-02-16] MEDS: predniSONE 5 MG Tablet PO (08:10)
[2021-02-16] MEDS: Aspirin 81 MG TAB.CHEW PO ×2 (08:10→20:37)
[2021-02-16] MEDS: Escitalopram Oxalate 10 MG Tablet 5 MG PO (08:10)
[2021-02-16] MEDS: Fenofibrate 145 MG Tablet PO (08:11)
[2021-02-16] MEDS: Metoprolol Tartrate 50 MG Tablet PO ×2 (08:11→20:38)
[2021-02-16] MEDS: Loratadine 10 MG Tablet PO (08:11)
[2021-02-16] MEDS: traMADol 50 MG Tablet PO ×3 (08:14→20:54)
[2021-02-16] MEDS: Multivitamins,Ther W-Minerals Tablet 1 TABLET PO (12:06)
--- NOTE | 2021-02-16 15:32 | PCM.HP.STD ---
HPI - General General Date of Admission: 02/15/21 Chief Complaint: Flu-like symptoms, r/o COVID-19 HPI Narrative XANDER WHALEY, is a 80 YO F with a PMH of hypertension, depression, allergic rhinitis, hyperlipidemia, hypothyroidism, osteoarthritis, RA, who presents [facility] Medical History (Updated 02/17/21 @ 15:[address] Stacy Frank DO) Depression High cholesterol HTN (hypertension) Hypothyroid Rheumatoid arthritis Home Medications levothyroxine [Synthroid] 100 mcg PO DAILY 10/03/14 [History Last Taken 02/12/21] omega-3 fatty acids-fish oil 1 ea PO QHS 10/03/14 [History Last Taken 02/11/21] pravastatin 40 mg PO QHS 10/03/14 [History Last Taken 02/11/21] Centrum Silver Women 1 tab PO DAILY 02/12/21 [History Last Taken 02/12/21] cetirizine [Zyrtec] 10 mg PO DAILY 02/12/21 [History Last Taken 02/12/21] escitalopram oxalate 5 mg PO DAILY 02/12/21 [History Last Taken 02/12/21] fenofibrate 160 mg PO DAILY 02/12/21 [History Last Taken 02/12/21] metoprolol tartrate 50 mg PO BID 02/12/21 [History Last Taken 02/12/21] prednisone 5 mg PO DAILY 02/12/21 [History Last Taken 02/12/21] tramadol 50 mg PO Q6H PRN 02/12/21 [History Last Taken 02/12/21] acetaminophen 1,000 mg PO Q8H PRN #0 tab 02/15/21 [Rx Last Taken Unknown] aspirin 81 mg PO BID 02/15/21 [History Last Taken Unknown] docusate sodium [DOK] 200 mg PO BID 02/15/21 [History Last Taken Unknown] oxycodone 10 mg PO Q4H PRN PRN 02/15/21 [History Last Taken Unknown] Allergy/AdvReac Type Severity Reaction Status Date / Time No Known Allergies Allergy Verified 02/13/21 07:22 Family History Father Colon cancer Mother CVA (cerebral vascular accident) CAD (coronary artery disease) Surgical History (Updated 02/17/21 @ 15:[address] Stacy Frank DO) History of MRSA infection Social History household members: none Smoking Status: Never smoker alcohol intake: never substance use type: does not use ROS Constitutional Constitutional: Denies anorexia, change in weight, chills, fatigue, fever(s), night sweats or weakness Eyes Eyes: Denies blurry vision, change in vision, eye pain or loss of vision ENT HEENT: Denies abnormal hearing, dysphagia, headache(s), hearing loss, nasal congestion or sore throat Cardiovascular Cardiovascular: Denies chest pain, dyspnea on exertion, edema, lightheadedness, orthopnea, palpitations, paroxysmal nocturnal dyspnea or syncope Respiratory/Chest Respiratory/Chest: Denies cough, dyspnea, shortness of breath at rest, shortness of breath with exertion or wheezing Gastrointestinal Gastrointestinal: Denies abdominal pain, constipation, diarrhea, dyspepsia, hematemesis, hematochezia, nausea or vomiting Genitourinary Genitourinary: Denies dysuria, hematuria, nocturia, urinary frequency, urinary hesitancy, urinary incontinence or urinary urgency Musculoskeletal Musculoskeletal: Reports joint pain and joint swelling; Denies back pain or neck pain Neurologic Neurologic: Denies confusion, disequilibrium, dizziness, focal weakness, headache(s), paresthesias, seizures or tremor(s) Psychiatric Psychiatric: Reports depression; Denies anxiety, homicidal ideation or suicidal ideation Endocrine Endocrinology: Denies change in body appearance, polydipsia or polyuria Hematologic/Lymphatic Hematologic/Lymphatic: Denies easy bleeding, easy bruising or lymphadenopathy Allergic/Immunologic Allergic/Immunologic: Denies rhinitis, eczemia or asthma Vital Signs Vital Signs Vital Signs: 02/15/21 19:39 02/15/21 21:33 02/15/21 21:59 Temperature Temperature Source Pulse Rate 70 70 Pulse Strength Respiratory Rate Respiratory Effort Normal Non-Labored Respiratory Depth Normal Respiratory Pattern Normal Blood Pressure 130/57 H Blood Pressure Mean Blood Pressure Source Blood Pressure Position Blood Pressure Location Pulse Ox 93 99 Oxygen Delivery Method Room Air Room Air Oxygen Flow Rate (L/min) 02/15/21 22:00 02/16/21 07:26 02/16/21 08:11 Temperature 97.9 F 98.1 F Temperature Source Oral Temporal Pulse Rate 70 78 78 Pulse Strength Normal (2+) Respiratory Rate 16 16 Respiratory Effort Respiratory Depth Respiratory Pattern Blood Pressure 130/57 H 144/60 H 144/60 H Blood Pressure Mean 81 88 Blood Pressure Source Monitor Monitor Blood Pressure Position Semi-Fowlers Supine Blood Pressure Location Right Arm Right Arm Pulse Ox 99 91 Oxygen Delivery Method Room Air Room Air Oxygen Flow Rate (L/min) 2 02/16/21 10:00 Temperature Temperature Source Pulse Rate Pulse Strength Normal (2+) Respiratory Rate Respiratory Effort Respiratory Depth Respiratory Pattern Blood Pressure Blood Pressure Mean Blood Pressure Source Blood Pressure Position Blood Pressure Location Pulse Ox Oxygen Delivery Method Oxygen Flow Rate (L/min) Weight Weight: 171 lb 15.369 oz Body Mass Index (BMI) 30.4 Physical Exam Const alert, oriented x3 and no apparent distress Constitutional Narrative: Sitting in the recliner at the bedside after therapy. General Appearance: cooperative, well kempt and well developed HEENT normocephalic HEENT Narrative: Dry mucous membranes Eyes PERRL, EOMs intact bilaterally, conjunctivae normal and no scleral icterus Neck No nuchal rigidity, no lymphadenopathy and supple General: trachea midline Chest Chest: symmetrical chest wall rise Resp normal respiratory effort, normal air movement, no use of accessory muscles and clear to auscultation bilaterally Effort and Inspection: able to speak in complete sentences Cardio regular rate, regular rhythm, S1 normal heart sound, S2 normal heart sound, no murmurs and no gallops Cardio Narrative: Feet and hands are warm to touch with intact sensation GI normal to inspection, nondistended, normoactive bowel sounds, soft to palpation and non-tender Back/Spine no CVA tenderness Extremity no calf tenderness and no pedal edema Skin Skin Narrative: The incision is intact with no erythema and no purulent DC General Skin Exam: no breakdown Rashes: no rashes Neuro oriented x3, CN's II-XII intact bilaterally, moves all extremities, no focal motor deficits and no sensory deficits noted Psych mental status grossly normal, thought process normal and affect normal Psych Narrative: making good eye contact while I am talking with her Assessment & Plan Assessment/Plan (1) Physical debility: (2) History of recent fall: (3) Closed femur fracture: (4) History of open reduction and internal fixation (ORIF) procedure: (5) Acute blood loss anemia: (6) Acute nontraumatic kidney injury: (7) Chronic steroid use: (8) Rheumatoid arthritis: (9) Hyperlipidemia: (10) Hypothyroid: (11) Osteoarthritis: (12) Hypertension: PLAN: PLAN PT for gait stability OT for ADL's Analgesics as needed Bowel protocol Fall precautions Assess for Anxiety/Depression GI prophylaxis not necessary at this time-patient is asymptomatic and has no history of peptic ulcer disease. DVT prophylaxis with aspirin 81 mg p.o. twice daily per orthopedics. She has no hx of VTEand there is no FH of VTE. Follow up with Dr. Jorge Pryor and Dr. Chidi Mccann following DC from Rehab She is not on calcium or vitamin D supplementation. She has not had a bone density study at [facility] but may have had one somewhere else. Since she is on thyroid medication and chronic steroids I recommended to her that she asked about having a bone density study done if she has not had one in the past 2 years. Charges/Coding Visit Charges Inpatient E&M: 88744 Init Hosp L2
--- NOTE | 2021-02-16 15:36 | PCM.RU.PYE ---
Admission Information Primary Diagnosis:: Debility due to fall resulting in a Left femur fracture. Status Changes from Prescreening?: No changes Identified Actual Problem List:: Bleeding, Falls, Skin Intergrity, Pain, ALteration in Cmfrt, Depression, Mobility Impaired, Self Care Deficit, Fluid Change-Dehydration and Alteration-Leisure Activ. Potential Problem List:: DVT, Bleeding, Infection, UTI, Aspiration, Falls, Skin Integrity and Depression Risk of Complications DVT: MARILUZ Menezes and - (Aspirin 81 mg twice daily x4 weeks) Bleeding: Monitor Lab Values, Nursing to Teach Precautions for anti-coagulation therapy., Wound, if applicable, to be assessed every shift. and Stroke patients assessed for lethargy or change in status. Infection: Clinical Staff to Monitor for S/S of infection: and S/S of infection include fever, redness, warmth, etc. Urinary Tract Infection: Monitor for frequency, burning, discomfort, or incontinence. and Nursing will obtain urine sample for urinalysis and C&S when ordered. Aspiration: Clinical staff will monitor for coughing, drooling, congestion., Speech will evaluate swallowing and dsyphasia. and Nursing will monitor patient swallowing during meals. Falls: Patient will be evaluated for Fall Precautions and Patient will be placed on Fall Precautions as indicated per protocol. Skin Breakdown: Nursing will assess skin daily using assessment tool. and Nursing will place on Skin Breakdown Precautions as indicated. Pain: Clinical staff will assess patient's pain level per protocol., Medications will be given, if needed, and the pain level reassessed. and Other methods: Massage, distraction, decrease stimulus, etc. used PRN. Plan of Care Patient requires physician specializing in physical medicine and rehab oversight to provide close medical supervision of rehab issues including: Pain Management, Sleep Problems, Bowel and Bladder, Medical and co-morbidity Management, DVT prophylaxis, Rehabilitation Leadership and Coordination of treatment team Patient needs Physical Therapy: For a minimum of 1 hour and At least 5 out of 7 days Patient needs Physical Therapy to improve:: Mobility, Strengthening, Transfers, Stretching, ROM, Endurance, Stairs, Gait and Balance Patient needs Occupational Therapy: For a minimum of 1 hour and At least 5 out of 7 days Patient needs Occupational Therapy to improve ADL's incl.: Eating, Grooming, Bathing, Dressing, Toileting, Toilet transfers, Community Reintegration, Higher functioning activities, Household tasks, Adaptive Equipment, Splinting and Other activities as determined Patient requires speech therapy for: Cognition (Evaluate cognition and will defer to the therapist about whether they will pick her up while she is in rehab) Patient requires 24/7 Rehabilitation Nursing for: Pain Issues, Identifying and preventing risk factors, Monitoring and reporting current medical conditions, Assisting with ambulation, transfer, and all ADL's, Teaching patients about disease process and medications, Family teaching, Providing safe environment, Bowel and Bladder Issues, Skin integrity and Medication Management Patient needs Cement Cutter/ Case Management for: Discharge Planning, Arranging Home Equipment or Services and Family Interventions Patient needs Dietary and Nutrition Services for: Adequate Nutrition, Nutritional Supplements and Nutritional Education Goals Patient will remain: free from falls and or injury at time of discharge. Patient will perform bed mobility at: MOD I level of assist. Patient will complete transfers from bed to chair at: MOD I level of assist. Patient will ambulate: with LRD and - (300 feet on various surfaces with a wheeled walker at mod I) Patient will complete upper body dressing at: MOD I level of assist. Patient will complete lower body dressing at: MOD I level of assist. Patient will complete toileting at: MOD I level of assist. Patient will perform bathing at: MOD I level of assist. Patient will complete grooming at: MOD I level of assist. Patient will complete home management skills at: MOD I level of assist. Patient will achieve: - (1 curb step and 2 steps with 2 handrails at standby assist to allow access to her home.) Patient will have pain level of: of 3 or less Patient's skin will: remain intact Patient will receive: adequate nutrition. Discharge Planning Pt Prognosis for Sig. Practical Improv. w/in Reasonable Time: Good Estimated Length of stay (days): 14 Anticipated D/C Destination: TBD Was Preadmission Assessment Accurate?: Yes
[2021-02-16] MEDS: Pravastatin 40 MG Tablet PO (20:38)
[2021-02-16] MEDS: Omega-3 Acid Ethyl Esters 1 GM Capsule PO (20:38)
--- NOTE | 2021-02-17 00:03 | NURSING ---
PVR #3. BS for 31ml remaining post void.
[2021-02-17] MEDS: traMADol 50 MG Tablet PO ×3 (05:58→18:33)
[2021-02-17] MEDS: Levothyroxine 100 MCG Tablet PO (05:58)
[2021-02-17 07:53] VITALS: BP 129/60; PULSE 80
[2021-02-17] MEDS: Escitalopram Oxalate 10 MG Tablet 5 MG PO (07:53)
[2021-02-17] MEDS: predniSONE 5 MG Tablet PO (07:53)
[2021-02-17] MEDS: Aspirin 81 MG TAB.CHEW PO ×2 (07:53→20:49)
[2021-02-17] MEDS: Loratadine 10 MG Tablet PO (07:53)
[2021-02-17] MEDS: Metoprolol Tartrate 50 MG Tablet PO ×2 (07:53→20:49)
[2021-02-17] MEDS: Fenofibrate 145 MG Tablet PO (07:54)
[2021-02-17 08:49] VITALS: BP 129/60; PULSE 80; RESP 16; TEMP 36.3; O2SAT 99
[2021-02-17] MEDS: Multivitamins,Ther W-Minerals Tablet 1 TABLET PO (12:13)
--- NOTE | 2021-02-17 16:43 | CHAPLAIN ---
Type of Pastoral Visit _x__ Initial Visit ___ Follow-up Visit ___ On-call Visit ___ General Patient Visit ___ Spiritual Assessment ___ Family Conference ___ Bereavement ___ Rapid Response ___ Code Blue ___ Other (describe below) Pastoral Care Referral From _x__ Patient ___ Family ___ Nurse ___ Physician ___ Format Proofreader ___ Coding Specialist ___ Other (describe below) Sacrament/Intervention _x__ Active listening ___ Anointing ___ Yazidi ___ Bereavement ___ Communion ___ Rosey exploration ___ _x__ Life review _x__ Prayer ___ Reconciliation ___ Sacrament of Sick _x__ Supportive presence ___ Wedding ___ Other (describe below) Pastoral Comments daughter arrived during the visit and conversation with prayer continued
--- NOTE | 2021-02-17 18:55 | PCM.PN.BLA ---
Progress Note Afebrile VSS Maintaining appropriate oxygen saturation on RA Oral intake is picking up. Discussed with nursing - no problems that need addressed Reviewed the PT/OT notes therapists have mentioned that her memory is impaired and I notice this myself when I interviewed her at admission so will consult the ST to evaluate. Medication list reviewed. She takes the Prednisone for RA. This is prescribed by her PCP she sees in [facility]. She has not been on MTX or Plaquenil. She has never seen a hand patcher. She has not had a bone density study in 4 years. She is on calcium and Vitamin D and Fosamax but, she neglected to list these medications on her home meds at admission. Her last BMD was in [place]. She has no complaints today and she has good pain relief. She denies CP, SOB, Calf pain. Physical Exam Const alert and oriented x3 Constitutional Narrative: Her short term memory is poor. She can not remember names and has trouble retaining the instructions given to her by the therapists. General Appearance: cooperative Resp normal respiratory effort and clear to auscultation bilaterally Effort and Inspection: able to speak in complete sentences Cardio regular rate, regular rhythm and no gallops Extremity no calf tenderness Extremity Narrative: no significant pedal edema ......trace at the L ankle. Skin Rashes: no rashes Wounds: wounds noted Wound Narrative: The incision is clean, dry and intact. Assessment & Plan Assessment/Plan (1) History of recent fall: (2) Physical debility: (3) History of open reduction and internal fixation (ORIF) procedure: (4) Rheumatoid arthritis: (5) Chronic steroid use: (6) Closed femur fracture: (7) Cognitive dysfunction: PLAN: 1. Continue therapy 2. Start Fosamax 70 mg every Tuesday in the a.m. on an empty stomach 3. Start vitamin D3 and calcium supplementation 4. I recommended she see a hand patcher. While steroids can help with the pain of RA they do not prevent the joint destruction. I recommended the [facility] in [place]. I also recommended she get a new bone density study at the rheumatology office and have the hand patcher make recommendations about tx of Osteoporosis. 5. ST eval for cognitive dysfunction - may be related to sleep apnea/depressions and isolation 6. the overnight trending pulse ox shoed that 23% of the time her pulse ox is < 90% and the lowest reading was 61%. She will need a sleep study post DC......will see if it can be arranged for the night of DC Visit Charges Inpatient E&M: 34696 Subs Hosp L2
[2021-02-17 19:10] VITALS: BP 117/52; PULSE 77; RESP 17; TEMP 36.8; O2SAT 95
[2021-02-17] MEDS: Pravastatin 40 MG Tablet PO (20:47)
[2021-02-17] MEDS: Omega-3 Acid Ethyl Esters 1 GM Capsule PO (20:48)
[2021-02-17 20:49] VITALS: PULSE 85
[2021-02-17] MEDS: Acetaminophen 500 MG Tablet 1000 MG PO (20:49)
[2021-02-17 20:55] VITALS: PULSE 85; RESP 16; O2SAT 95
--- NOTE | 2021-02-17 21:04 | NURSING ---
Pt reminded of lack of BM since 02/12 and staff recommends suppository. Pt refused at this time but stated she would have it in the a.m. Pt very fatigued this hs in bed.
[2021-02-18] MEDS: Levothyroxine 100 MCG Tablet PO (06:43)
[2021-02-18] MEDS: traMADol 50 MG Tablet PO ×3 (06:50→21:23)
[2021-02-18 06:55] VITALS: O2SAT 94
[2021-02-18 07:38] VITALS: BP 128/63; PULSE 71
[2021-02-18] MEDS: Cholecalciferol (VIT D3) 25 MCG TABLET (1,000 UNITS) 50 MCG PO (07:38)
[2021-02-18] MEDS: Calcium (Elemental) 500 MG Tablet PO ×2 (07:38→17:41)
[2021-02-18] MEDS: Metoprolol Tartrate 50 MG Tablet PO ×2 (07:38→21:25)
[2021-02-18] MEDS: Loratadine 10 MG Tablet PO (07:38)
[2021-02-18] MEDS: predniSONE 5 MG Tablet PO (07:38)
[2021-02-18] MEDS: Aspirin 81 MG TAB.CHEW PO ×2 (07:38→21:24)
[2021-02-18] MEDS: Escitalopram Oxalate 10 MG Tablet 5 MG PO (07:38)
[2021-02-18] MEDS: Fenofibrate 145 MG Tablet PO (07:39)
[2021-02-18 07:50] VITALS: BP 128/63; PULSE 71; RESP 16; TEMP 36.2; O2SAT 99
[2021-02-18] MEDS: Multivitamins,Ther W-Minerals Tablet 1 TABLET PO (12:21)
[2021-02-18] MEDS: Acetaminophen 500 MG Tablet 1000 MG PO (12:21)
[2021-02-18 19:50] VITALS: BP 133/62; PULSE 75; RESP 16; TEMP 36.2; O2SAT 97
[2021-02-18 21:25] VITALS: BP 133/62; PULSE 75
[2021-02-18] MEDS: Omega-3 Acid Ethyl Esters 1 GM Capsule PO (21:25)
[2021-02-18] MEDS: Pravastatin 40 MG Tablet PO (21:26)
[2021-02-19] MEDS: traMADol 50 MG Tablet PO ×3 (04:45→20:36)
[2021-02-19] MEDS: Levothyroxine 100 MCG Tablet PO (05:24)
[2021-02-19 08:33] VITALS: BP 121/54; PULSE 74; RESP 18; TEMP 36.4; O2SAT 97
[2021-02-19] MEDS: Escitalopram Oxalate 10 MG Tablet 5 MG PO (08:56)
[2021-02-19] MEDS: Polyethylene Glycol 3350 17 GM PACKET PO (08:57)
[2021-02-19] MEDS: Aspirin 81 MG TAB.CHEW PO ×2 (08:57→20:37)
[2021-02-19] MEDS: Fenofibrate 145 MG Tablet PO (08:57)
[2021-02-19] MEDS: predniSONE 5 MG Tablet PO (08:57)
[2021-02-19] MEDS: Cholecalciferol (VIT D3) 25 MCG TABLET (1,000 UNITS) 50 MCG PO (08:58)
[2021-02-19 08:59] VITALS: PULSE 74
[2021-02-19] MEDS: Metoprolol Tartrate 50 MG Tablet PO ×2 (08:59→20:37)
[2021-02-19] MEDS: Loratadine 10 MG Tablet PO (08:59)
[2021-02-19] MEDS: Calcium (Elemental) 500 MG Tablet PO ×2 (08:59→17:51)
[2021-02-19] MEDS: Acetaminophen 500 MG Tablet 1000 MG PO ×2 (09:05→22:12)
[2021-02-19] MEDS: Multivitamins,Ther W-Minerals Tablet 1 TABLET PO (13:07)
--- NOTE | 2021-02-19 13:57 | PCM.PN.BLA ---
Progress Note Naomie was seen on team rounds today. Her daughter Brenda was present in the room for rounds. Afebrile VSS Maintaining appropriate oxygen saturation on RA Oral intake is good Discussed with nursing - no problems that need addressed Reviewed the PT/OT/ST notes - ST did not pick her up.......she did well on all the cognitive testing. Short term memory is still a problem.....depression? sleep disordered breathing? Medication list reviewed. She denies chest pain, shortness of breath, palpitations, lightheadedness, nausea/vomiting/abdominal pain, dysuria. She is sleeping better at night. Physical Exam Const alert, oriented x3 and no apparent distress Constitutional Narrative: General Appearance: cooperative, well kempt and well developed Eyes PERRL, EOMs intact bilaterally, conjunctivae normal and no scleral icterus Neck General: trachea midline Chest Chest: symmetrical chest wall rise Resp normal respiratory effort, normal air movement, no use of accessory muscles and clear to auscultation bilaterally Effort and Inspection: able to speak in complete sentences Cardio regular rate, regular rhythm, S1 normal heart sound, S2 normal heart sound, no murmurs and no gallops GI normal to inspection, nondistended, normoactive bowel sounds, soft to palpation and non-tender Extremity no calf tenderness and no pedal edema Extremity Narrative: no significant pedal edema ......trace at the L ankle. Skin Skin Narrative: The incision is intact with no erythema and no purulent DC General Skin Exam: no breakdown Rashes: no rashes Wounds: wounds noted Wound Narrative: The incision is clean, dry and intact. Neuro oriented x3, CN's II-XII intact bilaterally, moves all extremities, no focal motor deficits and no sensory deficits noted Psych mental status grossly normal, thought process normal and affect normal Psych Narrative: making good eye contact while I am talking with her Assessment & Plan Assessment/Plan (1) Sleep-disordered breathing: (2) Left femoral shaft fracture: (3) History of open reduction and internal fixation (ORIF) procedure: (4) Acute blood loss anemia: (5) History of recent fall: (6) Physical debility: PLAN: 1. We discussed with the patient and her dtr the diagnosis of osteoporosis. She has not had a bone density study in at least 4 years. She did tell me she is taking Fosamax, calcium and vitamin D however these did not appear on her home medication list. Fosamax has been restarted and also calcium and vitamin D supplement. I recommended she get a bone mineral density study in the next 3 months. 2. I suspect her physical debility predated the fall/femur fracture. She has not been ambulating at home on a regular basis and is weak. Depression over her likely contributed to this as well as isolation due to the pandemic. She lives alone and has not been getting out much. Consider increasing the escitalopram. 3. Needs to have a sleep study due to loud snoring and a very abnormal overnight trending pulse ox. Will apply oxygen 2 LPM anytime she is sleeping. 4. She has never seen a emergency management consultant and the PCP she sees in [place] during the winter has been prescribing the Prednisone. I recommended she see a emergency management consultant for an evaluation to see if she can come off Prednisone which contributes to osteoporosis and immune suppression. Visit Charges Inpatient E&M: 78062 Subs Hosp L2
--- NOTE | 2021-02-19 14:32 | CASEMGMT ---
Social Work Team meeting held today with pt and pt marycruz Dumont in attendance and marycruz acevedo on conference call. Pt is receiving PT/OT and progressing with therapy. SW informed pt that Medicare has allowed for 17 days with projected d/c date of 03/04/21. Pt is understanding and plans to return home alone at time of discharge. Pt continues to benefit from 3 hours of therapy a day. Treatment plan to continue and will reteam next week. ANISHA Estevez
[2021-02-19 19:23] VITALS: BP 146/59; PULSE 70; RESP 16; TEMP 36.8; O2SAT 100
[2021-02-19] MEDS: Pravastatin 40 MG Tablet PO (20:36)
[2021-02-19 20:37] VITALS: BP 140/59; PULSE 70
[2021-02-19] MEDS: Omega-3 Acid Ethyl Esters 1 GM Capsule PO (20:37)
[2021-02-20 04:27] VITALS: PULSE 78; O2SAT 88
[2021-02-20] MEDS: Acetaminophen 500 MG Tablet 1000 MG PO ×3 (06:19→21:45)
[2021-02-20] MEDS: Levothyroxine 100 MCG Tablet PO (06:20)
[2021-02-20 07:12] VITALS: BP 121/45; PULSE 75; RESP 16; TEMP 36.5; O2SAT 99
[2021-02-20] MEDS: Loratadine 10 MG Tablet PO (07:48)
[2021-02-20] MEDS: Fenofibrate 145 MG Tablet PO (07:48)
[2021-02-20] MEDS: Aspirin 81 MG TAB.CHEW PO ×2 (07:48→21:45)
[2021-02-20] MEDS: Cholecalciferol (VIT D3) 25 MCG TABLET (1,000 UNITS) 50 MCG PO (07:48)
[2021-02-20] MEDS: Calcium (Elemental) 500 MG Tablet PO ×2 (07:49→17:34)
[2021-02-20] MEDS: Escitalopram Oxalate 10 MG Tablet 5 MG PO (07:56)
[2021-02-20 07:57] VITALS: PULSE 75
[2021-02-20] MEDS: Metoprolol Tartrate 50 MG Tablet PO ×2 (07:57→21:45)
[2021-02-20] MEDS: predniSONE 5 MG Tablet PO (07:58)
[2021-02-20] MEDS: traMADol 50 MG Tablet PO ×2 (07:59→17:34)
[2021-02-20] MEDS: Multivitamins,Ther W-Minerals Tablet 1 TABLET PO (12:54)
[2021-02-20 19:28] VITALS: BP 131/81; PULSE 65; RESP 16; TEMP 36.6; O2SAT 64
[2021-02-20 21:45] VITALS: PULSE 65
[2021-02-20] MEDS: Pravastatin 40 MG Tablet PO (21:45)
[2021-02-20] MEDS: Omega-3 Acid Ethyl Esters 1 GM Capsule PO (21:45)
[2021-02-20 22:00] VITALS: PULSE 65; RESP 16
[2021-02-21] MEDS: traMADol 50 MG Tablet PO ×3 (01:34→16:32)
[2021-02-21] MEDS: Levothyroxine 100 MCG Tablet PO (06:42)
[2021-02-21] MEDS: Acetaminophen 500 MG Tablet 1000 MG PO ×3 (06:49→20:05)
[2021-02-21 09:28] VITALS: PULSE 78
[2021-02-21] MEDS: Fenofibrate 145 MG Tablet PO (09:28)
[2021-02-21] MEDS: Loratadine 10 MG Tablet PO (09:28)
[2021-02-21] MEDS: Metoprolol Tartrate 50 MG Tablet PO ×2 (09:28→20:06)
[2021-02-21] MEDS: Escitalopram Oxalate 10 MG Tablet 5 MG PO (09:28)
[2021-02-21] MEDS: Cholecalciferol (VIT D3) 25 MCG TABLET (1,000 UNITS) 50 MCG PO (09:28)
[2021-02-21] MEDS: Calcium (Elemental) 500 MG Tablet PO ×2 (09:28→16:32)
[2021-02-21] MEDS: Aspirin 81 MG TAB.CHEW PO ×2 (09:29→20:05)
[2021-02-21] MEDS: Polyethylene Glycol 3350 17 GM PACKET PO (09:30)
[2021-02-21] MEDS: predniSONE 5 MG Tablet PO (09:30)
[2021-02-21 09:53] VITALS: BP 113/57; PULSE 74; RESP 16; TEMP 36.3; O2SAT 97
[2021-02-21] MEDS: Multivitamins,Ther W-Minerals Tablet 1 TABLET PO (13:12)
[2021-02-21 19:45] VITALS: BP 120/40; PULSE 66; RESP 16; TEMP 36.4; O2SAT 96
[2021-02-21 20:06] VITALS: BP 120/40; PULSE 65
[2021-02-21] MEDS: Pravastatin 40 MG Tablet PO (20:06)
[2021-02-21] MEDS: Omega-3 Acid Ethyl Esters 1 GM Capsule PO (20:06)
--- NOTE | 2021-02-22 00:08 | NURSING ---
Reviewed SYSTEMS ACCOUNTANT and agree with SYSTEMS ACCOUNTANT assessment.
[2021-02-22] MEDS: traMADol 50 MG Tablet PO ×3 (01:34→20:09)
[2021-02-22] MEDS: Acetaminophen 500 MG Tablet 1000 MG PO ×3 (05:30→20:09)
[2021-02-22] MEDS: Levothyroxine 100 MCG Tablet PO (05:30)
[2021-02-22] MEDS: Alendronate Sodium 70 MG Tablet PO (07:21)
[2021-02-22 07:30] VITALS: BP 119/48; PULSE 62; RESP 18; TEMP 36.6; O2SAT 98
[2021-02-22] MEDS: Loratadine 10 MG Tablet PO (09:32)
[2021-02-22] MEDS: predniSONE 5 MG Tablet PO (09:32)
[2021-02-22 09:33] VITALS: PULSE 77
[2021-02-22] MEDS: Metoprolol Tartrate 50 MG Tablet PO ×2 (09:33→20:10)
[2021-02-22] MEDS: Cholecalciferol (VIT D3) 25 MCG TABLET (1,000 UNITS) 50 MCG PO (09:33)
[2021-02-22] MEDS: Aspirin 81 MG TAB.CHEW PO ×2 (09:33→20:09)
[2021-02-22] MEDS: Fenofibrate 145 MG Tablet PO (09:33)
[2021-02-22] MEDS: Calcium (Elemental) 500 MG Tablet PO ×2 (09:34→18:46)
[2021-02-22] MEDS: Escitalopram Oxalate 10 MG Tablet 5 MG PO (09:35)
[2021-02-22] MEDS: Multivitamins,Ther W-Minerals Tablet 1 TABLET PO (13:37)
[2021-02-22 19:58] VITALS: BP 114/46; PULSE 69; RESP 16; TEMP 36.8; O2SAT 94
[2021-02-22 20:00] VITALS: PULSE 69; RESP 16; O2SAT 94
[2021-02-22] MEDS: Omega-3 Acid Ethyl Esters 1 GM Capsule PO (20:09)
[2021-02-22 20:10] VITALS: BP 114/46; PULSE 69
[2021-02-22] MEDS: Pravastatin 40 MG Tablet PO (20:10)
--- NOTE | 2021-02-22 23:50 | NURSING ---
Reviewed and agree with MAINTENANCE REPAIRER assessment.
[2021-02-23] MEDS: Levothyroxine 100 MCG Tablet PO (06:05)
[2021-02-23] MEDS: Acetaminophen 500 MG Tablet 1000 MG PO ×3 (06:05→20:45)
[2021-02-23 07:30] VITALS: BP 148/85; PULSE 79; RESP 16; TEMP 36.4; O2SAT 98
[2021-02-23 08:53] VITALS: PULSE 70
[2021-02-23] MEDS: Calcium (Elemental) 500 MG Tablet PO ×2 (08:53→17:19)
[2021-02-23] MEDS: Loratadine 10 MG Tablet PO (08:53)
[2021-02-23] MEDS: Aspirin 81 MG TAB.CHEW PO ×2 (08:53→20:44)
[2021-02-23] MEDS: traMADol 50 MG Tablet PO ×3 (08:53→22:42)
[2021-02-23] MEDS: Metoprolol Tartrate 50 MG Tablet PO ×2 (08:53→20:44)
[2021-02-23] MEDS: Cholecalciferol (VIT D3) 25 MCG TABLET (1,000 UNITS) 50 MCG PO (08:54)
[2021-02-23] MEDS: predniSONE 5 MG Tablet PO (08:54)
[2021-02-23] MEDS: Fenofibrate 145 MG Tablet PO (08:56)
[2021-02-23] MEDS: Escitalopram Oxalate 10 MG Tablet 5 MG PO (09:00)
[2021-02-23] MEDS: Multivitamins,Ther W-Minerals Tablet 1 TABLET PO (12:54)
--- NOTE | 2021-02-23 13:55 | PCM.PN.BLA ---
Progress Note Afebrile VSS Maintaining appropriate oxygen saturation on RA Oral intake is good Discussed with nursing - no problems that need addressed Reviewed the PT/OT notes Medication list reviewed. Denies CP, SOB, palpitations, N/V/abd pain, dysuria, cough, SOB, calf pain. Slept well the past few nights. No complaints today. She tells me that she really has not been walking for the past couple years. She wonders if she will be able to return to her home or will she be disabled. she is progressing slowly but, due to the inactivity for the past few years her legs are week. She tells me that her pain is adequately controlled. She tells me that she takes Celebrex once a day usually. She has been taking the Tramadol 50 mg 3X's a day. She is also on Tylenol 1 GM Q 8 H. Physical Exam Const alert, oriented x3 and no apparent distress Constitutional Narrative: General Appearance: cooperative, well kempt and well developed HEENT normocephalic Neck No nuchal rigidity, no lymphadenopathy and supple General: trachea midline Chest Chest: symmetrical chest wall rise Resp normal respiratory effort, normal air movement, no use of accessory muscles and clear to auscultation bilaterally Effort and Inspection: able to speak in complete sentences Cardio regular rate, regular rhythm, S1 normal heart sound, S2 normal heart sound, no murmurs and no gallops GI normal to inspection, nondistended, normoactive bowel sounds, soft to palpation and non-tender Back/Spine no CVA tenderness Extremity no calf tenderness and no pedal edema Skin Skin Narrative: The incision is intact with no erythema and no purulent DC General Skin Exam: no breakdown Rashes: no rashes Wounds: wounds noted Wound Narrative: The incision is clean, dry and intact. Neuro oriented x3, CN's II-XII intact bilaterally, moves all extremities, no focal motor deficits and no sensory deficits noted Psych mental status grossly normal, thought process normal and affect normal Psych Narrative: making good eye contact while I am talking with her Assessment & Plan Assessment/Plan (1) Acute blood loss anemia: (2) History of recent fall: (3) Physical debility: (4) History of open reduction and internal fixation (ORIF) procedure: (5) Left femoral shaft fracture: (6) Cognitive dysfunction: (7) Sleep-disordered breathing: PLAN: 1. sleep study at [place]. she snores loudly and has daytime somnolence and has multiple desaturations on overnight trending pulse ox 2. I suspect she is still somewhat depressed. This is conjunction with untreated sleep apnea is the likely etiology of the cognitive dysfunction. Will increase the Lexapro to 10 mg daily. 3. Continue therapy 4. Check a HH and a BMP in the AM. Visit Charges Inpatient E&M: 23339 Subs Hosp L2
[2021-02-23 19:22] VITALS: BP 151/68; PULSE 70; RESP 18; TEMP 36.4; O2SAT 96
[2021-02-23 20:44] VITALS: BP 128/52; PULSE 81
[2021-02-23] MEDS: Omega-3 Acid Ethyl Esters 1 GM Capsule PO (20:45)
[2021-02-23] MEDS: Pravastatin 40 MG Tablet PO (20:45)
--- NOTE | 2021-02-24 02:53 | NURSING ---
Reviewed and agree with REFERRAL CLERK documentation and assessment charting.
[2021-02-24 06:02] LABS: Hemoglobin 8.9 g/dL (12.0-15.0)
[2021-02-24 06:36] LABS: Anion Gap 5 (5-15); BUN 23 mg/dL (7-18); BUN/Creat Ratio 24.1 RATIO (10-20); Calcium,Total 8.4 mg/dL (8.5-10.1); Chloride 109 mmol/L (98-107); Creatinine, Serum 0.96 mg/dL (0.55-1.02); EST Glomerular Filtration Rate 60 mL/min (>60); Est Glom Filt Rate - Afr Amer 72 mL/min (>60); Estimated Creatinine Clearance 39.31 ml/min; Glucose 96 mg/dL (74-106); Potassium 3.8 mmol/L (3.5-5.1); Sodium Level 142 mmol/L (136-145)
[2021-02-24] MEDS: Levothyroxine 100 MCG Tablet PO (06:37)
[2021-02-24] MEDS: Acetaminophen 500 MG Tablet 1000 MG PO ×3 (06:38→21:58)
[2021-02-24 07:06] VITALS: BP 140/62; PULSE 61; RESP 17; TEMP 36.6; O2SAT 95
[2021-02-24 07:56] VITALS: BP 140/62; PULSE 61
[2021-02-24] MEDS: Fenofibrate 145 MG Tablet PO (07:56)
[2021-02-24] MEDS: Metoprolol Tartrate 50 MG Tablet PO ×2 (07:56→21:58)
[2021-02-24] MEDS: predniSONE 5 MG Tablet PO (07:57)
[2021-02-24] MEDS: Cholecalciferol (VIT D3) 25 MCG TABLET (1,000 UNITS) 50 MCG PO (07:57)
[2021-02-24] MEDS: Loratadine 10 MG Tablet PO (07:57)
[2021-02-24] MEDS: Calcium (Elemental) 500 MG Tablet PO ×2 (07:57→17:21)
[2021-02-24] MEDS: Escitalopram Oxalate 10 MG Tablet PO (07:57)
[2021-02-24] MEDS: Aspirin 81 MG TAB.CHEW PO ×2 (07:57→21:59)
--- NOTE | 2021-02-24 10:02 | NURSING ---
Spoke with Rebecca at Dr Chidi De Jesus office, pt is to continue Aspirin 81mg BID for 1 month post op. (03/16/21)
[2021-02-24] MEDS: Multivitamins,Ther W-Minerals Tablet 1 TABLET PO (11:53)
[2021-02-24] MEDS: traMADol 50 MG Tablet PO ×2 (12:47→20:16)
[2021-02-24 18:57] VITALS: BP 144/65; PULSE 72; RESP 16; TEMP 36.8; O2SAT 96
[2021-02-24 20:23] VITALS: PULSE 72; RESP 16; O2SAT 96
[2021-02-24 21:58] VITALS: PULSE 77
[2021-02-24] MEDS: Omega-3 Acid Ethyl Esters 1 GM Capsule PO (21:59)
[2021-02-24] MEDS: Pravastatin 40 MG Tablet PO (21:59)
[2021-02-25] MEDS: Levothyroxine 100 MCG Tablet PO (05:50)
[2021-02-25] MEDS: Acetaminophen 500 MG Tablet 1000 MG PO ×3 (05:50→21:44)
[2021-02-25 07:52] VITALS: BP 148/63; PULSE 79
[2021-02-25] MEDS: Escitalopram Oxalate 10 MG Tablet PO (07:52)
[2021-02-25] MEDS: Metoprolol Tartrate 50 MG Tablet PO ×2 (07:52→20:59)
[2021-02-25] MEDS: Multivitamins,Ther W-Minerals Tablet 1 TABLET PO (07:52)
[2021-02-25] MEDS: Loratadine 10 MG Tablet PO (07:52)
[2021-02-25] MEDS: Calcium (Elemental) 500 MG Tablet PO ×2 (07:52→16:50)
[2021-02-25] MEDS: predniSONE 5 MG Tablet PO (07:53)
[2021-02-25] MEDS: Aspirin 81 MG TAB.CHEW PO ×2 (07:53→20:59)
[2021-02-25] MEDS: Fenofibrate 145 MG Tablet PO (07:53)
[2021-02-25] MEDS: Cholecalciferol (VIT D3) 25 MCG TABLET (1,000 UNITS) 50 MCG PO (07:53)
[2021-02-25] MEDS: traMADol 50 MG Tablet PO ×3 (07:55→20:58)
[2021-02-25 08:20] VITALS: BP 148/63; PULSE 79; RESP 16; TEMP 36.3; O2SAT 96
--- NOTE | 2021-02-25 09:26 | PN_ITS ---
Progress Note Afebrile VSS Maintaining appropriate oxygen saturation on RA Oral intake is adequate She had 4 BM's yesterday and 4 BM's on Tuesday. She has been refusing the Miralax. She is incontinent of urine and sometimes misses Discussed with nursing - no problems that need addressed Reviewed the PT/OT notes - she is progressing slowly She was able to use the toilet yesterday with the SLATE ROOFER outside the door and she managed her clothing and hygiene with no loss of balance. She ambulated slowly 62 ft yesterday with the WW. Medication list reviewed. She took the Tramadol twice yesterday for pain. The HGB is down to 8.9 from 12.4 at admission to the hospital. Naomie is c/o her nose being dry with the oxygen at night. Moisture was added last night. She normally takes Zyrtec for allergies but, the allergy sx are mild. She is agreeable to stopping the Claritin for a few days to see if sx reoccur. If she has sx would like to try Atrovent nasal spray....less side effects. She denies SOB, CP, palpitations. The pain is adequately controlled. She has noticed that she is no longer drowsy and nodding off to sleep since the oxygen at night was started. She is having less difficulty with word finding. Physical Exam Const alert, oriented x3 and no apparent distress Constitutional Narrative: appears comfortable sitting in the recliner. General Appearance: cooperative and well kempt Resp clear to auscultation bilaterally Cardio regular rate, regular rhythm and no gallops GI normal to inspection, nondistended, normoactive bowel sounds, soft to palpation and non-tender Extremity no calf tenderness and no pedal edema Extremity Narrative: The R elbow is ecchymotic and when you flex and extend the elbow there is a click. There is fluid in the olecranon bursa but no redness and no increased warmth to touch over the olecranon bursa. Skin Skin Narrative: ecchymosis is resolving General Skin Exam: no breakdown Rashes: no rashes Psych mental status grossly normal, thought process normal and cooperative Attitude: calm Activity / Motor Behavior: appropriate eye contact Assessment & Plan Assessment/Plan (1) History of open reduction and internal fixation (ORIF) procedure: PLAN: 1. Hold the Loratadine for a few days and see if allergy sx come back. I like to avoid antihistamines in the elderly due to the potential of causing drowsiness, memory problems and increased falls. If she has sx reoccur then will try Atrovent Nasal spray. 2. Sleep study at DC 3. DEXA at [place] 4. she will follow up with a principal statistical scientist post DC to see if she can get off Prednisone. Visit Charges Inpatient E&M: 87603 Subs Hosp L2
[2021-02-25 18:53] VITALS: BP 119/47; PULSE 74; RESP 16; TEMP 36.8; O2SAT 95
[2021-02-25 20:59] VITALS: PULSE 74
[2021-02-25] MEDS: Omega-3 Acid Ethyl Esters 1 GM Capsule PO (20:59)
[2021-02-25] MEDS: Pravastatin 40 MG Tablet PO (20:59)
[2021-02-25] MEDS: Sodium Chloride 0.65% 1 SPRAY SPRAY.BTL 2 SPRAY NASAL (21:02)
[2021-02-25 21:07] VITALS: BP 137/63; PULSE 72
[2021-02-25 22:00] VITALS: PULSE 74; RESP 16; O2SAT 96
[2021-02-26] MEDS: Acetaminophen 500 MG Tablet 1000 MG PO ×3 (06:30→21:03)
[2021-02-26] MEDS: Levothyroxine 100 MCG Tablet PO (06:30)
[2021-02-26 07:07] VITALS: BP 145/63; PULSE 72; RESP 16; TEMP 36.4; O2SAT 97
[2021-02-26 08:26] VITALS: BP 145/63; PULSE 72
[2021-02-26] MEDS: Cholecalciferol (VIT D3) 25 MCG TABLET (1,000 UNITS) 50 MCG PO (08:26)
[2021-02-26] MEDS: Aspirin 81 MG TAB.CHEW PO ×2 (08:26→21:02)
[2021-02-26] MEDS: Calcium (Elemental) 500 MG Tablet PO ×2 (08:26→17:43)
[2021-02-26] MEDS: Escitalopram Oxalate 10 MG Tablet PO (08:26)
[2021-02-26] MEDS: Fenofibrate 145 MG Tablet PO (08:26)
[2021-02-26] MEDS: predniSONE 5 MG Tablet PO (08:26)
[2021-02-26] MEDS: Metoprolol Tartrate 50 MG Tablet PO ×2 (08:26→21:02)
[2021-02-26] MEDS: traMADol 50 MG Tablet PO ×3 (08:28→21:03)
--- NOTE | 2021-02-26 11:40 | SLEEP ---
SPOKE WITH PT ABOUT HAVING A SLEEP STUDY TO EVALUATE FOR CHARLY. SHE ADMITS TO SNORE, HTN, DAYTIME SLEEPINESS AND UNRESTED FEELING UPON AWAKENING. SHE ALSO WAKES WITH DRY MOUTH AND HAS RECENTLY BEGAN NOTICING HEADACHES SOME MORNING, WHICH IS NEW FOR HER. SHE USES RR 2-3 X NIGHTLY, HER ESS SCORE IS 10. SHE IS AGREEABLE TO DC FROM [facility] TO ON MARCH 03 AT 8PM AND AWARE SHE WOULD BE D/C TO HOME BETWEEN 530-600AM ON MARCH 04. SHE IS GOING TO DISCUSS WITH HER DAUGHTER, DR. WALSH IS AWARE AND AGREEABLE AND WILL DISCUSS FURTHER WITH THE PATIENT AT ROUNDS. A SPOT IS CURRENTLY BEING HELD FOR HER ON SLEEP LAB SCHEDULE.
[2021-02-26] MEDS: Multivitamins,Ther W-Minerals Tablet 1 TABLET PO (12:28)
--- NOTE | 2021-02-26 14:17 | CASEMGMT ---
Addendum entered by Angie Sierra 02/26/21 14:35: Social Work List of private duty aids provided to pt per pt request as she may need assist with bathing. SW also spoke with pt regarding DME options for oxygen and pt would like to use [employer]. SW will followup with arrangements. ANISHA Estevez Original Note: Social Work Team meeting held with pt and pt's dgt Julia [place] and pt dgt Lxey on conference call. Pt is progressing well with both physical and occupational therapy. Plan is to discharge on Saturday 03/03 to the sleep lab, and then home on morning. Pt and dgt are agreeable. Therapy is recommending continued out pt therapy and pt is agreeable and would like to use [facility]. Pt will need home oxygen for night time until sleep study is completed and pt is agreeable to this. Pt dgt plans to obtain needed DME, 3 in 1 commode and portable mounted grab bar. Pt has walker and rollator. ORACIO will continue to follow to assist with discharge planning. ANISHA Estevez
--- NOTE | 2021-02-26 16:41 | PN_ITS ---
Progress Note Naomie was seen on TEAM rounds today and her dtr Julia was present in the room and her dtr Lexy was on speaker phone. VSS Maintaining appropriate oxygen saturation on RA Oral intake is good Discussed with nursing - no problems that need addressed Reviewed the PT/OT notes and listened to their reports on rounds. Medication list reviewed. Naomie tells me that she slept well last night. She denies chest pain, shortness of breath, palpitations, lightheadedness, nausea/vomiting/abdominal pain, dysuria. She continues to progress in therapy and is walking up to 82 feet at standby assist with a front wheeled walker. She is able to a send/descend 2 steps with 2 handrails at standby assist. Pain is adequately controlled. She has noticed that since she has been wearing the oxygen at night she is no longer tred all day and she is not taking naps during the day. Julia has also noticed a change in her. Physical Exam Const alert, oriented x3 and no apparent distress Constitutional Narrative: Very alert today and well put together. She is talkative, appropriate and pleasant. General Appearance: cooperative and well kempt Eyes PERRL, EOMs intact bilaterally, conjunctivae normal and no scleral icterus Neck Neck Narrative: Neck circumference is 37 cm. Resp normal respiratory effort, normal air movement, no use of accessory muscles and clear to auscultation bilaterally Resp Narrative: Not tachypneic Effort and Inspection: able to speak in complete sentences Cardio regular rate, regular rhythm and no gallops GI normal to inspection, nondistended, normoactive bowel sounds, soft to palpation, non-tender and non-distended Extremity no calf tenderness and no pedal edema Skin General Skin Exam: no breakdown Rashes: no rashes Wound Narrative: The incision is healing well with non purulent DC, no erythema. Psych mental status grossly normal, thought process normal, cooperative and affect normal Assessment & Plan Assessment/Plan (1) Physical debility: (2) History of open reduction and internal fixation (ORIF) procedure: (3) Left femoral shaft fracture: (4) Sleep-disordered breathing: (5) Acute blood loss anemia: PLAN: 1. STOP BANG score is 5 for snoring, HTN, daytime fatigue, age > 50 and her prior to her told her she stopped breathing at night. She also has a very abnormal overnight trending pulse with saturations in the low 60's 2. I am concerned about the drop in the HGB, increase in the BUN/CREAT ratio despite good oral intake and hydration. No diarrhea and she denies hematochezia. Will check a hemoccult stool and recheck the HGB Tuesday or Tuesday. 3. search of current literature does not recommend using beta blockers to treat HTN. CHANDU inhibitors and dihydropyridine calcium channel blockers are more effective. Beta-blockers in the elderly can also cause some confusion. Systolic BP is often above 135. Will discuss BP control with the pt and see if she is willing to consider decreasing the beta jonathan and starting either an CHANDU inhibitor or Procardia XL. 4. Needs a DEXA and a consult with a nuclear process engineer post DC. Nursing is trying to get her an appt at the [facility] [place]. 5. She is going to be scheduled for a sleep study on 03/03 and will follow up with pulmonary medicine after the test has been completed to prescribe tx. Visit Charges Inpatient E&M: 78090 Subs Hosp L2
[2021-02-26 19:59] VITALS: BP 125/81; PULSE 68; RESP 16; TEMP 36.6; O2SAT 97
[2021-02-26 21:02] VITALS: BP 125/81; PULSE 68
[2021-02-26] MEDS: Omega-3 Acid Ethyl Esters 1 GM Capsule PO (21:03)
[2021-02-26] MEDS: Pravastatin 40 MG Tablet PO (21:03)
[2021-02-27] MEDS: Acetaminophen 500 MG Tablet 1000 MG PO ×3 (06:07→20:44)
[2021-02-27] MEDS: Levothyroxine 100 MCG Tablet PO (06:07)
[2021-02-27] MEDS: traMADol 50 MG Tablet PO ×3 (06:08→20:44)
[2021-02-27 07:50] VITALS: BP 138/61; PULSE 70; RESP 18; TEMP 36.7; O2SAT 94
[2021-02-27 08:17] VITALS: BP 138/61; PULSE 70
[2021-02-27] MEDS: Escitalopram Oxalate 10 MG Tablet PO (08:17)
[2021-02-27] MEDS: Fenofibrate 145 MG Tablet PO (08:17)
[2021-02-27] MEDS: predniSONE 5 MG Tablet PO (08:17)
[2021-02-27] MEDS: Metoprolol Tartrate 50 MG Tablet PO ×2 (08:17→20:44)
[2021-02-27] MEDS: Cholecalciferol (VIT D3) 25 MCG TABLET (1,000 UNITS) 50 MCG PO (08:17)
[2021-02-27] MEDS: Aspirin 81 MG TAB.CHEW PO ×2 (08:17→20:45)
[2021-02-27] MEDS: Calcium (Elemental) 500 MG Tablet PO ×2 (08:17→16:37)
[2021-02-27] MEDS: Multivitamins,Ther W-Minerals Tablet 1 TABLET PO (12:03)
[2021-02-27 20:30] VITALS: BP 108/84; PULSE 72; RESP 18; TEMP 36.8; O2SAT 95
[2021-02-27 20:44] VITALS: BP 108/84; PULSE 72
[2021-02-27] MEDS: Omega-3 Acid Ethyl Esters 1 GM Capsule PO (20:44)
[2021-02-27] MEDS: Pravastatin 40 MG Tablet PO (20:45)
--- NOTE | 2021-02-28 03:14 | NURSING ---
Reviewed and agree with MAMMOGRAPHY SUPERVISOR note and assessment.
[2021-02-28] MEDS: Acetaminophen 500 MG Tablet 1000 MG PO ×3 (05:31→22:07)
[2021-02-28] MEDS: traMADol 50 MG Tablet PO ×2 (05:31→15:33)
[2021-02-28] MEDS: Levothyroxine 100 MCG Tablet PO (05:32)
[2021-02-28 07:22] LABS: Hematocrit 30.7 % (37-47); Hemoglobin 9.5 g/dL (12.0-15.0)
[2021-02-28 07:30] VITALS: BP 131/58; PULSE 61; RESP 16; TEMP 36.7; O2SAT 95
[2021-02-28 09:26] VITALS: PULSE 73
[2021-02-28] MEDS: Metoprolol Tartrate 50 MG Tablet PO ×2 (09:26→22:07)
[2021-02-28] MEDS: Aspirin 81 MG TAB.CHEW PO ×2 (09:26→22:07)
[2021-02-28] MEDS: predniSONE 5 MG Tablet PO (09:26)
[2021-02-28] MEDS: Escitalopram Oxalate 10 MG Tablet PO (09:26)
[2021-02-28] MEDS: Fenofibrate 145 MG Tablet PO (09:27)
[2021-02-28] MEDS: Calcium (Elemental) 500 MG Tablet PO ×2 (09:28→15:33)
[2021-02-28] MEDS: Cholecalciferol (VIT D3) 25 MCG TABLET (1,000 UNITS) 50 MCG PO (09:28)
--- NOTE | 2021-02-28 10:58 | PCM.PN.BLA ---
Progress Note Afebrile Vital signs are stable and the blood pressure is well controlled She is maintaining appropriate oxygen saturation on room air while awake and has been on oxygen at night for sleep disordered breathing. Hemoglobin today is 9.5, up from 8.9 on 02/24/2021. Stool is Hemoccult positive. She is on prednisone and aspirin twice daily. Will add a PPI to her drug regimen. No problems reported by nursing. She has noticed that she no longer needs to take a nap in the afternoon since she has been on oxygen and sleeping well. She denies SOB, CP, hemoptysis, calf pain. No N/V/abd pain Physical Exam Const alert, oriented x3 and no apparent distress General Appearance: cooperative HEENT moist oral mucous membranes Resp normal respiratory effort and clear to auscultation bilaterally Cardio regular rate and regular rhythm GI normal to inspection, nondistended, normoactive bowel sounds, soft to palpation and non-tender Extremity no calf tenderness Extremity Narrative: MARILUZ hose in place Skin General Skin Exam: no breakdown Rashes: no rashes Psych cooperative and affect normal Assessment & Plan Assessment/Plan (1) Rheumatoid arthritis: (2) Sleep-disordered breathing: (3) Acute blood loss anemia: (4) Physical debility: (5) Olecranon bursitis of right elbow: (6) Hypoxemia associated with sleep: PLAN: 1. Arthritis compounded cream TID to the R elbow. 2. Continue therapy 3. Overnight sleep study the night of DC from rehab. Will DC one day early so this can be done Visit Charges Inpatient E&M: 94433 Subs Hosp L2
[2021-02-28] MEDS: Multivitamins,Ther W-Minerals Tablet 1 TABLET PO (12:14)
[2021-02-28] MEDS: Pantoprazole Sodium 40 MG Tablet PO (13:19)
[2021-02-28 19:28] VITALS: BP 125/52; PULSE 68; RESP 16; TEMP 36.4; O2SAT 94
[2021-02-28 22:07] VITALS: PULSE 72
[2021-02-28] MEDS: Omega-3 Acid Ethyl Esters 1 GM Capsule PO (22:07)
[2021-02-28] MEDS: Pravastatin 40 MG Tablet PO (22:07)
--- NOTE | 2021-03-01 01:18 | NURSING ---
Reviewed and agree with GEAR GENERATOR SET UP OPERATOR documentation and assessment charting.
[2021-03-01] MEDS: Acetaminophen 500 MG Tablet 1000 MG PO ×3 (07:33→21:44)
[2021-03-01] MEDS: Levothyroxine 100 MCG Tablet PO (07:49)
[2021-03-01] MEDS: Alendronate Sodium 70 MG Tablet PO (07:50)
[2021-03-01 08:05] VITALS: BP 127/54; PULSE 66; RESP 16; TEMP 36.4; O2SAT 94
[2021-03-01] MEDS: Escitalopram Oxalate 10 MG Tablet PO (09:56)
[2021-03-01] MEDS: Aspirin 81 MG TAB.CHEW PO ×2 (09:56→21:44)
[2021-03-01] MEDS: Cholecalciferol (VIT D3) 25 MCG TABLET (1,000 UNITS) 50 MCG PO (09:56)
[2021-03-01] MEDS: predniSONE 5 MG Tablet PO (09:56)
[2021-03-01] MEDS: Calcium (Elemental) 500 MG Tablet PO ×2 (09:56→17:19)
[2021-03-01 09:57] VITALS: PULSE 74
[2021-03-01] MEDS: Fenofibrate 145 MG Tablet PO (09:57)
[2021-03-01] MEDS: Metoprolol Tartrate 50 MG Tablet PO ×2 (09:57→21:44)
[2021-03-01] MEDS: Pantoprazole Sodium 40 MG Tablet PO (09:57)
[2021-03-01] MEDS: Multivitamins,Ther W-Minerals Tablet 1 TABLET PO (11:27)
[2021-03-01 20:47] VITALS: BP 117/49; PULSE 69; RESP 16; TEMP 36.4; O2SAT 94
[2021-03-01 21:44] VITALS: BP 117/49; PULSE 69
[2021-03-01] MEDS: traMADol 50 MG Tablet PO (21:44)
[2021-03-01] MEDS: Pravastatin 40 MG Tablet PO (21:44)
[2021-03-01] MEDS: Omega-3 Acid Ethyl Esters 1 GM Capsule PO (21:44)
[2021-03-02] MEDS: Acetaminophen 500 MG Tablet 1000 MG PO ×3 (05:48→21:16)
[2021-03-02] MEDS: Levothyroxine 100 MCG Tablet PO (05:49)
[2021-03-02 08:17] VITALS: BP 116/47; PULSE 70; RESP 18; TEMP 36.4; O2SAT 97
[2021-03-02] MEDS: Calcium (Elemental) 500 MG Tablet PO ×2 (08:47→17:18)
[2021-03-02] MEDS: Aspirin 81 MG TAB.CHEW PO ×2 (08:47→21:16)
[2021-03-02] MEDS: Escitalopram Oxalate 10 MG Tablet PO (08:47)
[2021-03-02 08:49] VITALS: BP 116/47; PULSE 70
[2021-03-02] MEDS: Fenofibrate 145 MG Tablet PO (08:49)
[2021-03-02] MEDS: Pantoprazole Sodium 40 MG Tablet PO (08:49)
[2021-03-02] MEDS: Metoprolol Tartrate 50 MG Tablet PO ×2 (08:49→21:16)
[2021-03-02] MEDS: Cholecalciferol (VIT D3) 25 MCG TABLET (1,000 UNITS) 50 MCG PO (08:49)
[2021-03-02] MEDS: predniSONE 5 MG Tablet PO (08:49)
[2021-03-02] MEDS: traMADol 50 MG Tablet PO (08:49)
[2021-03-02] MEDS: Multivitamins,Ther W-Minerals Tablet 1 TABLET PO (12:05)
--- NOTE | 2021-03-02 14:00 | CASEMGMT ---
Social Work Order for outpatient physical therapy faxed to [facility] outpatient clinic. Order for home oxygen faxed to [facility] [place] for overnight oxygen along with supporting documentation. [facility] [place] to deliver oxygen to patient home. Met with patient in room to collaborate on discharge plan. Patient confirms with plan to discharge to sleep lab tomorrow and then home on 03/03/2021. Patient denies any concerns with transportation or discharge plan. Proposed discharge date: 03/03/2021 Disposition: Home with alone with family for support and outpatient physical therapy. Luz Canales MSW, SALEEM
[2021-03-02 19:43] VITALS: BP 115/41; PULSE 69; RESP 18; TEMP 36.8; O2SAT 95
[2021-03-02 21:10] VITALS: PULSE 69; RESP 18; O2SAT 95
[2021-03-02] MEDS: Arthritis Pain Compound 60 CLICK TUBE TOPICAL (21:15)
[2021-03-02 21:16] VITALS: BP 115/41; PULSE 69
[2021-03-02] MEDS: Pravastatin 40 MG Tablet PO (21:16)
[2021-03-02] MEDS: Omega-3 Acid Ethyl Esters 1 GM Capsule PO (21:16)
--- NOTE | 2021-03-03 03:58 | NURSING ---
Reviewed and agree with COTTON BAG CLIPPER documentation and charting.
[2021-03-03 05:49] LABS: Hematocrit 30.6 % (37-47); Hemoglobin 9.5 g/dL (12.0-15.0)
[2021-03-03 06:03] LABS: Anion Gap 4 (5-15); BUN 19 mg/dL (7-18); BUN/Creat Ratio 22.5 RATIO (10-20); Calcium,Total 8.1 mg/dL (8.5-10.1); Chloride 112 mmol/L (98-107); Creatinine, Serum 0.84 mg/dL (0.55-1.02); EST Glomerular Filtration Rate 69 mL/min (>60); Est Glom Filt Rate - Afr Amer 84 mL/min (>60); Estimated Creatinine Clearance 44.92 ml/min; Glucose 96 mg/dL (74-106); Potassium 4.2 mmol/L (3.5-5.1); Sodium Level 145 mmol/L (136-145)
[2021-03-03] MEDS: Acetaminophen 500 MG Tablet 1000 MG PO ×3 (06:53→19:46)
[2021-03-03] MEDS: Levothyroxine 100 MCG Tablet PO (06:53)
[2021-03-03] MEDS: predniSONE 5 MG Tablet PO (07:49)
[2021-03-03] MEDS: Aspirin 81 MG TAB.CHEW PO ×2 (07:49→19:46)
[2021-03-03] MEDS: Calcium (Elemental) 500 MG Tablet PO ×2 (07:49→17:44)
[2021-03-03 07:50] VITALS: BP 146/53; PULSE 78
[2021-03-03] MEDS: Fenofibrate 145 MG Tablet PO (07:50)
[2021-03-03] MEDS: Metoprolol Tartrate 50 MG Tablet PO ×2 (07:50→19:46)
[2021-03-03] MEDS: Pantoprazole Sodium 40 MG Tablet PO (07:50)
[2021-03-03] MEDS: Escitalopram Oxalate 10 MG Tablet PO (07:50)
[2021-03-03] MEDS: Cholecalciferol (VIT D3) 25 MCG TABLET (1,000 UNITS) 50 MCG PO (07:50)
[2021-03-03 08:30] VITALS: BP 146/53; PULSE 78; RESP 18; TEMP 36.7; O2SAT 98
[2021-03-03] MEDS: Multivitamins,Ther W-Minerals Tablet 1 TABLET PO (11:47)
--- NOTE | 2021-03-03 11:58 | PCM.DC ---
Discharge Instructions Diet Discharge Diet: Carb Control Diet Activity Discharge Activity: No Restrictions, May Not Drive, May Shower and Use Walker May resume sexual activity in: No Restrictions Ice area for (Minutes): 15 Weight Bearing Status: Weight bearing as tolerated Lifting Restrictions: 10 lbs Keep extremity elevated above heart level: Left Leg Additional Activity Instructions:: Do NOT sit for more than 45-60 minutes without getting up and taking a walk around the house. You will get stiff and have more pain. Do the exercises given to you by the therapists at least once a day. Use the walker when you are outside your house. Dressing / Incision Call your doctor if your incision/area has: Sudden Increased Bleeding, Increased Pain/ Swelling, Increased Redness, Foul Smelling Discharge and Swelling at the incision site Call your doctor if you observe: Fever of 101 or Higher, Numbness or Tingling, Inability to urinate, Inability to have a bowel movement, Shortness of breath, Fainting spells, Swelling in the ankles, Chest pain, Increased palpitations (irregular heartbeat), Calf discomfort and Uncontrolled pain Suture Line Care: Avoid Pulling/Pushing and Avoid Pinching/Bending Cleanse incision/area with: Soap & Water and Keep Dressing Clean & Dry Additional Dressing/Incision Instructions:: Kep the incision covered with a non-stick dressing. Follow Up Care Please Follow Up With: Sleep Study When: 03/03/21 Test Results: Test results from this visit will be discussed in further detail at your follow-up appointment, if applicable. Pending Tests Upon Discharge: none Discharge Plan Admission Admit Date/Time: 02/15/21 14:25 Primary Reason for Your Visit: Debility due to a fall resulting in a Left femur fracture Attending Provider: Stacy Frank Primary Care Provider: Jorge Pryor Instructions Patient Instructions: Anemia, Prediabetes, What Are Snoring and Sleep Apnea?, Osteoporosis Prevent Bone Loss, Preventing Osteoporosis: Staying Active, Dehydration, ED Sleep Apnea, Obstructive, A1C Additional Instructions / Restrictions: 1. Outpatient PT[facility]OT at [facility]. [facility] for night time use 2. Your blood sugars are mildly elevated making you prediabetic. If you can lose some weight and get more active your probably will not need to take medication in the future. Your HGBA1C was 5.9 and the highest normal is 5.6. Nothing to worry about for now but, it can progress so KEEP WALKING and do NOT overload on carbohydrates. Plenty of vegetables, lean meats and fruit (no more than 3 servings of fruit a day since fruit contains a fair amount of sugar). Eat bread, pasta, potatoes, corn, peas, pastries, candy sparingly. 3. I increased the dose of the antidepressant while you were in rehab. I think you have still been depressed and this contributed to the memory problems and the lack of exercise and motivation. You have tolerated the mild increase in dose with no adverse side effects. I would continue the higher dose for at least 3 months and THEN if your are feeling good, getting exercise and socializing with friends you could consider going back down to 5 mg. 4. I do not know if you realize fully how much your memory and word finding have improved since you have been using oxygen at night but, everyone has noticed the difference. You are also more alert and engaged with what you are doing. 5. An appt has been made for you to follow up with the pulmonary doctor to go over the results of the sleep study with you. 6. I will send a copy of your DC summary to Dr. Pryor and to the pulmonary doctor. 7. Prednisone has MANY side effects, even in small doses. I strongly suggest you see a metal bending machine operator in the near future to discuss options other than Prednisone to treat arthritis. 7. It has been a pleasure getting to know you Naomie. You have done well in therapy and worked hard. If you have any questions after you leave rehab please do not hesitate to call me. Office: [phone] Discharge Orders/Prescriptions Prescriptions: New escitalopram oxalate 10 mg Tablet 10 mg PO DAILY Qty: 30 RF: 0 Arthritis Pain Compound 0 click topical TID Qty: 0 RF: 0 alendronate 70 mg Tablet 70 mg PO Odom@0700 Qty: 0 RF: 0 cholecalciferol (vitamin D3) 25 mcg (1,000 unit) Tablet 50 mcg PO DAILYCM Qty: 0 RF: 0 calcium carbonate [Oyster Shell Calcium 500] 500 mg calcium (1,250 mg) Tablet 500 mg PO BIDCM Qty: 0 RF: 0 pantoprazole 40 mg Tablet,Delayed Release (Dr/Ec) 40 mg PO DAILY Qty: 30 RF: 0 Continued pravastatin 40 MG tablet 40 mg PO QHS RF: 0 levothyroxine [Synthroid] 100 MCG tablet 100 mcg PO DAILY RF: 0 omega-3 fatty acids-fish oil 1 EACH capsule 1 ea PO QHS RF: 0 prednisone 5 mg tablet 5 mg PO DAILY RF: 0 metoprolol tartrate 50 mg tablet 50 mg PO BID RF: 0 fenofibrate 160 mg tablet 160 mg PO DAILY RF: 0 Centrum Silver Women 8 mg iron-400 mcg-300 mcg Tablet 1 tab PO DAILY RF: 0 acetaminophen 500 mg Tablet 1,000 mg PO Q8H PRN (Reason: Pain Score 1-10/Temp > 100.7 F) Qty: 0 RF: 0 tramadol 50 mg tablet 50 mg PO Q6H PRN (Reason: Pain) 7 Days Qty: 24 RF: 0 aspirin 81 mg tablet,chewable 81 mg PO BID Qty: 0 RF: 0 Discontinued cetirizine [Zyrtec] 10 mg Tablet 10 mg PO DAILY RF: 0 escitalopram oxalate 5 mg tablet 5 mg PO DAILY RF: 0 docusate sodium [DOK] 100 mg capsule 200 mg PO BID RF: 0 oxycodone 5 mg tablet 10 mg PO Q4H PRN PRN (Reason: Pain) RF: 0 Referrals / Follow Up: Jorge Pryor DO [Primary Care Provider] - Disposition Disposition (needs filled in before D/C Order can be placed): Home, Self Care
--- NOTE | 2021-03-03 13:22 | DS.PCM_ITS ---
Providers Date of Admission: 02/15/21 Date of Discharge: 03/03/21 Primary Care Physician: Dr. Jorge Pryor DO Reason For Visit: FEMUR FRACTURE Diagnosis Discharge Diagnosis (1) Physical debility: Status: Acute Code(s): R53.81 - Other malaise (2) History of recent fall: Status: Acute Code(s): Z91.81 - History of falling (3) Left femoral shaft fracture: Status: Acute Code(s): S72.302A - Unspecified fracture of shaft of left femur, initial encounter for closed fracture (4) History of open reduction and internal fixation (ORIF) procedure: Status: Acute Code(s): Z98.890 - Other specified postprocedural states (5) Hypoxemia associated with sleep: Status: Acute Code(s): G47.36 - Sleep related hypoventilation in conditions classified elsewhere (6) Sleep-disordered breathing: Status: Acute Code(s): G47.30 - Sleep apnea, unspecified (7) Cognitive dysfunction: Status: Resolved Code(s): F09 - Unspecified mental disorder due to known physiological condition (8) Acute blood loss anemia: Status: Acute Code(s): D62 - Acute posthemorrhagic anemia (9) Rheumatoid arthritis: Status: Acute Code(s): M06.9 - Rheumatoid arthritis, unspecified (10) Acute nontraumatic kidney injury: Status: Resolved Code(s): N17.9 - Acute kidney failure, unspecified (11) Chronic steroid use: Status: Chronic (12) Hyperlipidemia: Status: Chronic Code(s): E78.5 - Hyperlipidemia, unspecified (13) Hypothyroid: Status: Chronic Code(s): E03.9 - Hypothyroidism, unspecified (14) Osteoarthritis: Status: Chronic Code(s): M19.90 - Unspecified osteoarthritis, unspecified site (15) Hypertension: Status: Chronic Code(s): I10 - Essential (primary) hypertension Plan: Discharge home with OP PT/OT Overnight split sleep study Needs a bone density scan - last was 4 years ago Follow up with rheumatology to see if she can be treated with something other than daily steroids Medications at Discharge Home Medications levothyroxine [Synthroid] 100 mcg PO DAILY 10/03/14 omega-3 fatty acids-fish oil 1 ea PO QHS 10/03/14 pravastatin 40 mg PO QHS 10/03/14 Centrum Silver Women 1 tab PO DAILY 02/12/21 fenofibrate 160 mg PO DAILY 02/12/21 metoprolol tartrate 50 mg PO BID 02/12/21 prednisone 5 mg PO DAILY 02/12/21 acetaminophen 1,000 mg PO Q8H PRN #0 tab 02/15/21 Arthritis Pain Compound 0 click TOPICAL TID #0 03/03/21 alendronate 70 mg PO Odom@0700 #0 tab 03/03/21 aspirin 81 mg PO BID #0 tab 03/03/21 calcium carbonate [Oyster Shell Calcium 500] 500 mg PO BIDCM #0 tab 03/03/21 cholecalciferol (vitamin D3) 50 mcg PO DAILYCM #0 tab 03/03/21 escitalopram oxalate 10 mg PO DAILY #30 tab 03/03/21 pantoprazole 40 mg PO DAILY #30 tab 03/03/21 tramadol 50 mg PO Q6H PRN 7 Days #24 tab 03/03/21 Hospital Course Operations - (Intramedullary nail fixation on 02/13/2021 of left femur fracture by Dr. Chidi Mccann.) Procedures None Summary of Care Provided Minutes Spent on Discharge: 40 Hospital Course: Naomie Barbosa is 80 YO F who fell while ambulating with her cane on 02/12/21. She sustained a displaced fracture of the proximal third of the Left femoral. shaft. Preoperative lab revealed an elevated creatinine at 1.63 and this did return to baseline following hydration. She was taken to surgery on 02/13/[address] Chidi Mccann and a intramedullary nail was inserted in the femoral shaft. Postoperative course was marked by a decrease in hemoglobin from 12.4 at admission to 9.3 on postop day #1. She was discharged from the hospital on 02/15/2021 and transferred to the inpatient acute rehab floor at [facility] for 3 hours of therapy daily to restore function/independence at or near her prior level of function. She was ambulatory in the community with a cane however, she had not been walking much. He a few years ago and she became depressed and then COVID happened and she has been isolated at home and getting more depressed. She was not motivated to exercise. She had persistent depressive sx and was on a low dose of Escitalopram. She had generalized weakness at admission to rehab due to severe deconditioning. The Escitalopram dose was increased to 10 mg. Many of the staff and myself noticed when Naomie initially presented to rehab that she was having difficulty with word finding at times and short term memory was poor. She was drowsy and she had routinely been taking naps during the day. Because she had hypoxemia at night and her STOP BANG score put her at high risk for CHARLY an overnight trending pulse ox was done and she had many desaturations, as low as 60%. She was ordered O2 supplementation at HS of 2 LPM via WA. She was seen by ST and they found no problem with cognition. She became more alert and was no longer requiring naps. She was more talkative and did better with therapy. Hemoglobin remained stable at 9.5 during her stay in rehab. At the time of discharge the BUN was 19 and creatinine was 0.84. Calcium corrected for hypo albuminemia was low normal. HGBA1C was elevated at 5.9 consistent with glucose intolerance/prediabetes. The Vitamin D level was good at 45. She has not had a bone density in at least 4 years. She usually gets them when she is in [place] for the winter. She has been diagnosed with osteoporosis in the past and was taking Vitamin D, calcium and Fosamax. She is chronically on Prednisone 5 mg daily for RA. She was diagnosed by a PCP she sees in [place] and he placed her on Prednisone. This likely contributes to osteoporosis significantly. She has never seen a shactor helper and I recommended she follow up with rheumatology post NM to see if she could get off Prednisone. Naomie did well in rehab. Prior to discharge she was able to ambulate 66 feet on various surfaces with a front wheeled walker at supervision. She was able to ambulate 130 feet on a flat surface at supervision with a Rollator. She could a send/descend to 6 inch steps x2 sets with bilateral railing at contact- guard assist prior to discharge so that she could enter her home. She was independent with all activities of daily living with the exception of lower body dressing and for this she required only minimal assistance. Naomie was discharged on 06/03/20 and went to the sleep lab for an overnight sleep study. She went home the following day and will have OP PT at [facility]. Arrangements were made for oxygen at night. she has a follow up appt with pulmonology in March. She will follow up with Dr. Pryor in 7-10 days post DC and she also has an appt to see Dr. Mccann. At the time of DC she is still having Left elbow pain that started whe her elbow was dislocated in November of 2020. She will follow up with the orthopedic surgeon who took care of her at that time. Physical Exam Const alert, oriented x3 and no apparent distress Constitutional Narrative: Very alert today and well put together. She is talkative, appropriate and pleasant. General Appearance: cooperative, well kempt and well developed HEENT normocephalic Eyes PERRL, EOMs intact bilaterally, conjunctivae normal and no scleral icterus Neck No nuchal rigidity, no lymphadenopathy and supple Neck Narrative: Neck circumference is 37 cm. General: trachea midline Chest Chest: symmetrical chest wall rise Resp normal respiratory effort, normal air movement, no use of accessory muscles and clear to auscultation bilaterally Resp Narrative: Not tachypneic Effort and Inspection: able to speak in complete sentences Cardio regular rate, regular rhythm, S1 normal heart sound, S2 normal heart sound, no murmurs and no gallops Cardio Narrative: Feet and hands are warm to touch with intact sensation GI normal to inspection, nondistended, normoactive bowel sounds, soft to palpation, non-tender and non-distended Back/Spine no CVA tenderness Extremity no calf tenderness and no pedal edema Extremity Narrative: The R elbow is ecchymotic and when you flex and extend the elbow there is a click. There is fluid in the olecranon bursa but no redness and no increased warmth to touch over the olecranon bursa. Skin Skin Narrative: ecchymosis is resolving General Skin Exam: no breakdown Rashes: no rashes Wounds: wounds noted Wound Narrative: The incision is healing well with non purulent DC, no erythema. Neuro oriented x3, CN's II-XII intact bilaterally, moves all extremities, no focal motor deficits and no sensory deficits noted Psych mental status grossly normal, thought process normal, cooperative and affect normal Psych Narrative: making good eye contact while I am talking with her Attitude: calm Activity / Motor Behavior: appropriate eye contact Weight / BMI Weight Weight: 171 lb 15.369 oz Body Mass Index (BMI) 30.4 ABG / Lab / Microbiology Data Result Diagrams: 03/03/21 05:33 03/03/21 05:33 Laboratory: Laboratory Results - last 24 hr 03/03/21 05:33: Hgb 9.5 L, Hct 30.6 L 03/03/21 05:33: Sodium 145, Potassium 4.2, Chloride 112 H, Carbon Dioxide 29.0, Anion Gap 4 L, BUN 19 H, Creatinine 0.84, Estim Creat Clear Calc 44.92, Est GFR (MDRD) Af Amer 84, Est GFR (MDRD) Non-Af 69, BUN/Creatinine Ratio 22.5 H, Glucose 96, Calcium 8.1 L Microbiology: Microbiology 02/27/21 08:25 Stool Stool Occult Blood (GILDARDO) - Final Occult Blood Positive D/C Instructions Discharge Diet: Carb Control Diet May resume sexual activity in: No Restrictions Ice area for (Minutes): 15 Weight Bearing Status: Weight bearing as tolerated Keep extremity elevated above heart level: Left Leg Additional Activity Instructions: Do NOT sit for more than 45-60 minutes without getting up and taking a walk around the house. You will get stiff and have more pain. Do the exercises given to you by the therapists at least once a day. Use the walker when you are outside your house. Call your doctor if your incision/area has: Sudden Increased Bleeding, Increased Pain/ Swelling, Increased Redness, Foul Smelling Discharge and Swelling at the incision site Call your doctor if you observe: Fever of 101 or Higher, Numbness or Tingling, Inability to urinate, Inability to have a bowel movement, Shortness of breath, Fainting spells, Swelling in the ankles, Chest pain, Increased palpitations (irregular heartbeat), Calf discomfort and Uncontrolled pain Suture Line Care: Avoid Pulling/Pushing and Avoid Pinching/Bending Cleanse incision/area with: Soap & Water and Keep Dressing Clean & Dry Additional Dressing/Incision Instructions: Kep the incision covered with a non-stick dressing. Pending Tests Upon Discharge: none Please Follow Up With: Sleep Study When: 03/03/21 Meaningful Use Info Meaningful Use Diagnoses (Choose all that apply): None applicable Discharge Plan Admission Admit Date/Time: 02/15/21 14:25 Primary Reason for Your Visit: Debility due to a fall resulting in a Left femur fracture Attending Provider: Stacy Frank Primary Care Provider: Jorge Pryor Instructions Patient Instructions: Anemia, Prediabetes, What Are Snoring and Sleep Apnea?, Osteoporosis Prevent Bone Loss, Preventing Osteoporosis: Staying Active, Dehydration, ED Sleep Apnea, Obstructive, A1C Additional Instructions / Restrictions: 1. Outpatient PT/OT at [facility]. Home oxygen through [employer] for night time use 2. Your blood sugars are mildly elevated making you prediabetic. If you can lose some weight and get more active your probably will not need to take medication in the future. Your HGBA1C was 5.9 and the highest normal is 5.6. Nothing to worry about for now but, it can progress so KEEP WALKING and do NOT overload on carbohydrates. Plenty of vegetables, lean meats and fruit (no more than 3 servings of fruit a day since fruit contains a fair amount of sugar). Eat bread, pasta, potatoes, corn, peas, pastries, candy sparingly. 3. I increased the dose of the antidepressant while you were in rehab. I think you have still been depressed and this contributed to the memory problems and the lack of exercise and motivation. You have tolerated the mild increase in d ose with no adverse side effects. I would continue the higher dose for at least 3 months and THEN if your are feeling good, getting exercise and socializing with friends you could consider going back down to 5 mg. 4. I do not know if you realize fully how much your memory and word finding have improved since you have been using oxygen at night but, everyone has noticed the difference. You are also more alert and engaged with what you are doing. 5. An appt has been made for you to follow up with the pulmonary doctor to go over the results of the sleep study with you. 6. I will send a copy of your DC summary to Dr. Pryor and to the pulmonary doctor. 7. Prednisone has MANY side effects, even in small doses. I strongly suggest you see a shactor helper in the near future to discuss options other than Prednisone to treat arthritis. 7. It has been a pleasure getting to know you Naomie. You have done well in therapy and worked hard. If you have any questions after you leave rehab please do not hesitate to call me. Office: [phone] Discharge Orders/Prescriptions Prescriptions: New escitalopram oxalate 10 mg Tablet 10 mg PO DAILY Qty: 30 RF: 0 Arthritis Pain Compound 0 click topical TID Qty: 0 RF: 0 alendronate 70 mg Tablet 70 mg PO Odom@0700 Qty: 0 RF: 0 cholecalciferol (vitamin D3) 25 mcg (1,000 unit) Tablet 50 mcg PO DAILYCM Qty: 0 RF: 0 calcium carbonate [Oyster Shell Calcium 500] 500 mg calcium (1,250 mg) Tablet 500 mg PO BIDCM Qty: 0 RF: 0 pantoprazole 40 mg Tablet,Delayed Release (Dr/Ec) 40 mg PO DAILY Qty: 30 RF: 0 Continued pravastatin 40 MG tablet 40 mg PO QHS RF: 0 levothyroxine [Synthroid] 100 MCG tablet 100 mcg PO DAILY RF: 0 omega-3 fatty acids-fish oil 1 EACH capsule 1 ea PO QHS RF: 0 prednisone 5 mg tablet 5 mg PO DAILY RF: 0 metoprolol tartrate 50 mg tablet 50 mg PO BID RF: 0 fenofibrate 160 mg tablet 160 mg PO DAILY RF: 0 Centrum Silver Women 8 mg iron-400 mcg-300 mcg Tablet 1 tab PO DAILY RF: 0 acetaminophen 500 mg Tablet 1,000 mg PO Q8H PRN (Reason: Pain Score 1-10/Temp > 100.7 F) Qty: 0 RF: 0 tramadol 50 mg tablet 50 mg PO Q6H PRN (Reason: Pain) 7 Days Qty: 24 RF: 0 aspirin 81 mg tablet,chewable 81 mg PO BID Qty: 0 RF: 0 Discontinued cetirizine [Zyrtec] 10 mg Tablet 10 mg PO DAILY RF: 0 escitalopram oxalate 5 mg tablet 5 mg PO DAILY RF: 0 docusate sodium [DOK] 100 mg capsule 200 mg PO BID RF: 0 oxycodone 5 mg tablet 10 mg PO Q4H PRN PRN (Reason: Pain) RF: 0 Referrals / Follow Up: Jorge Pryor DO [Primary Care Provider] - Disposition Disposition (needs filled in before D/C Order can be placed): Home, Self Care Charges/Coding Visit Charges Inpatient E&M: [id number] Disch Hosp
[2021-03-03] MEDS: Arthritis Pain Compound 60 CLICK TUBE TOPICAL ×2 (13:59→19:48)
[2021-03-03 18:29] VITALS: BP 124/69; PULSE 66; RESP 16; TEMP 36.8; O2SAT 98
--- NOTE | 2021-03-03 18:31 | NURSING ---
Discharged instructions medications and appointments reviewed with pt. denies questions or concerns.
[2021-03-03 19:46] VITALS: PULSE 66
[2021-03-03] MEDS: Omega-3 Acid Ethyl Esters 1 GM Capsule PO (19:46)
[2021-03-03] MEDS: Pravastatin 40 MG Tablet PO (19:46)
[2021-03-03] MEDS: traMADol 50 MG Tablet PO (19:59)
== END 2021-03-03 19:59 | disposition home or self-care (01) | DRG 561 ==
PROVIDERS: Admitting Provider Internal Medicine; PCP Student in an Organized Health Care Education/Training Program; Visit Provider Internal Medicine
DX: S72.92XD Unspecified fracture of left femur, subsequent encounter for closed fracture with routine healing (principal); W19.XXXD Unspecified fall, subsequent encounter; M06.9 Rheumatoid arthritis, unspecified; E03.9 Hypothyroidism, unspecified; E78.5 Hyperlipidemia, unspecified; F32.A Depression, unspecified; I10 Essential (primary) hypertension; M19.90 Unspecified osteoarthritis, unspecified site; Z79.899 Other long term (current) drug therapy; Z79.890 Hormone replacement therapy; Z79.52 Long term (current) use of systemic steroids
CPT/HCPCS: 36415; 80048; 82274; 85014; 85018; 92523; 94762; 97110; 97116; 97124; 97162; 97166; 97530; 97535; 97537; 97802; 99251; G0463

== ENCOUNTER → 2021-03-03 20:37 | Outpatient (CLI) | payer MEDICARE, BC, SELFPAY ==
[2021-03-03] MEDS: Zolpidem Tartrate 5 MG Tablet PO (21:22)
== END ==
PROVIDERS: PCP Student in an Organized Health Care Education/Training Program; Visit Provider Internal Medicine
DX: G47.33 Obstructive sleep apnea (adult) (pediatric) (principal)
CPT/HCPCS: 95811

== ENCOUNTER 2021-08-13 13:00 | Outpatient (CLI) | payer MEDICARE, BC, SELFPAY | END 2021-08-13 23:59 | disposition home or self-care (01) | LOC: SL 14:22 | PROVIDERS: PCP Student in an Organized Health Care Education/Training Program; Visit Provider Nurse Practitioner Acute Care | DX: G47.33 Obstructive sleep apnea (adult) (pediatric) (principal) | CPT/HCPCS: 98960; G0463 ==

== ENCOUNTER → 2024-03-20 | Outpatient (CLI) | payer MEDICARE, BC, SELFPAY | END | disposition home or self-care (01) | LOC: SL 13:58 | PROVIDERS: PCP Student in an Organized Health Care Education/Training Program; Referring Provider Nurse Practitioner Acute Care; Visit Provider Nurse Practitioner Acute Care | DX: G47.33 Obstructive sleep apnea (adult) (pediatric) (principal) | CPT/HCPCS: 98960; G0463 ==

== ENCOUNTER → 2025-03-07 | Outpatient (CLI) | payer MEDICARE, BC, SELFPAY | END | disposition home or self-care (01) | LOC: SL 13:48 | PROVIDERS: PCP Student in an Organized Health Care Education/Training Program; Referring Provider Nurse Practitioner Family; Visit Provider Nurse Practitioner Family | DX: G47.33 Obstructive sleep apnea (adult) (pediatric) (principal) | CPT/HCPCS: 98960; G0463 ==